=== PATIENT | female | born 1965 | race African-American/Black ===

== ENCOUNTER 2016-12-26 10:08 | Emergency (ER) | payer MEDICARE, MEDICAID ==
[~2016-12-26] VITALS: Ht 162.6 cm; Wt 193.6 kg
[2016-12-26] MEDS ORDERED: KETOROLAC 60MG/2ML VIAL IM ONE (11:00)
[2016-12-26 11:54] VITALS: BP 168/82
== END 2016-12-26 12:18 | disposition home or self-care (01) ==
LOC: ER 10:08
DX: M25.562 Pain in left knee (principal); M17.12 Unilateral primary osteoarthritis, left knee; I50.9 Heart failure, unspecified; E11.9 Type 2 diabetes mellitus without complications; I10 Essential (primary) hypertension; F17.210 Nicotine dependence, cigarettes, uncomplicated; Z88.0 Allergy status to penicillin
CPT/HCPCS: 73564; 81025; 96372; 99284; J1885

== ENCOUNTER 2019-01-14 09:36 | Emergency (ER) | payer OTHER, MEDICAID ==
[~2019-01-14] VITALS: Ht 172.7 cm; Wt 190.0 kg
[~2019-01-14 09:36] MED LIST: AMLO10TA4 MT; COR12 MT; FURO40TA5 PO; HYDR-4001 PO; LOSA25TA26 MT
[2019-01-14] MEDS ORDERED: MORPHINE SULFATE 10 MG/ML CPJ IM ONE (10:00)
[2019-01-14] MEDS ORDERED: ONDANSETRON 4MG ODT PO ONE (10:00)
[2019-01-14 13:20] VITALS: BP 115/89
== END 2019-01-14 13:30 | disposition home or self-care (01) ==
LOC: ER 09:36
DX: G89.29 Other chronic pain (principal); M54.40 Lumbago with sciatica, unspecified side; I11.0 Hypertensive heart disease with heart failure; I50.9 Heart failure, unspecified; I89.0 Lymphedema, not elsewhere classified; R60.0 Localized edema; E11.9 Type 2 diabetes mellitus without complications; Z98.890 Other specified postprocedural states; Z79.899 Other long term (current) drug therapy; Z88.0 Allergy status to penicillin
CPT/HCPCS: 73562; 93970; 99284; J2270; Q0162

== ENCOUNTER 2019-05-30 12:49 | Emergency (ER) | payer OTHER, MEDICAID ==
[~2019-05-30] VITALS: Ht 162.6 cm; Wt 152.0 kg
[2019-05-30 14:21] LABS: BASOPHILS % 0.6 % (0.0-2.0); EOSINOPHILS % 1.6 % (0.0-5.0); HEMATOCRIT. 40.6 % (36.0-48.0); HEMOGLOBIN. 13.2 g/dL (12.0-16.0); LYMPHOCYTES % 29.7 % (20.0-50.0); MEAN CORPUSCULAR HEMOGLOBIN 29.6 pg (28.0-32.0); MEAN CORPUSCULAR VOLUME 91.2 fL (81.0-99.0); MEAN PLATELET VOLUME 8.9 fl (7.4-10.4); MONOCYTES % 7.2 % (2.0-8.0); NEUTROPHILS % 60.9 % (40.0-76.0); PLATELET 249 x1000/uL (130-400); RED BLOOD CELL COUNT 4.45 mill/uL (4.2-5.4); RED CELL DISTRIBUTION WIDTH 13.4 % (11.6-14.6)
[2019-05-30 14:32] LABS: CHLORIDE 107 mEq/L (98-107)
[2019-05-30 14:39] LABS: CLARITY URINE CLEAR (CLEAR); COLOR URINE YELLOW (YELLOW); KETONES URINE NEGATIVE (NEGATIVE); LEUKOCYTE ESTERASE URINE TRACE (NEGATIVE); NITRITE URINE NEGATIVE (NEGATIVE); OCCULT BLOOD URINE NEGATIVE (NEGATIVE); PROTEIN URINE NEGATIVE (NEGATIVE); SPECIFIC GRAVITY URINE 1.016 (1.005-1.030); UROBILINOGEN URINE 0.2 E.U./dL (0.2-1.0)
[2019-05-30] MEDS ORDERED: ACETAMINOPHEN WITH CODEINE 300/30MG TABLET PO ONE (16:00)
[2019-05-30 16:20] VITALS: BP 172/72
== END 2019-05-30 16:22 | disposition home or self-care (01) ==
LOC: ER 12:49
DX: N30.90 Cystitis, unspecified without hematuria (principal); E11.65 Type 2 diabetes mellitus with hyperglycemia; F17.290 Nicotine dependence, other tobacco product, uncomplicated; J44.9 Chronic obstructive pulmonary disease, unspecified; I10 Essential (primary) hypertension; Z98.890 Other specified postprocedural states; Z79.899 Other long term (current) drug therapy; Z88.0 Allergy status to penicillin
CPT/HCPCS: 36415; 80053; 81003; 85025; 99283; 99406

== ENCOUNTER 2019-08-01 11:30 | Inpatient (IN) | payer OTHER, MEDICAID ==
[~2019-08-01] VITALS: Ht 162.6 cm; Wt 194.6 kg
[2019-08-01] MEDS ORDERED: HYDROCODONE/ACETAMINOPHEN 5/325MG TABLET PO ONE (12:45)
[2019-08-01] MEDS ORDERED: KETOROLAC 30MG/ML VIAL IM ONE (12:45)
[2019-08-01] MEDS ORDERED: MORPHINE SULFATE 10 MG/ML CPJ IM ONE (14:00)
[2019-08-01] MEDS ORDERED: ONDANSETRON 4MG ODT PO ONE (14:00)
[2019-08-01 18:14] LABS: BASOPHILS % 0.5 % (0.0-2.0); EOSINOPHILS % 2.2 % (0.0-5.0); HEMATOCRIT. 37.4 % (36.0-48.0); HEMOGLOBIN. 12.4 g/dL (12.0-16.0); LYMPHOCYTES % 29.4 % (20.0-50.0); MEAN CORPUSCULAR HEMOGLOBIN 29.3 pg (28.0-32.0); MEAN CORPUSCULAR VOLUME 88.1 fL (81.0-99.0); MEAN PLATELET VOLUME 8.9 fl (7.4-10.4); MONOCYTES % 9.8 % (2.0-8.0); NEUTROPHILS % 58.1 % (40.0-76.0); PLATELET 220 x1000/uL (130-400); RED BLOOD CELL COUNT 4.24 mill/uL (4.2-5.4)
[2019-08-01 18:17] LABS: BG BASE EXCESS 2.1 mmol/L (-2.0-2.0); BG CARBOXYHEMOGLOBIN 0.3 % (0.5-1.5); BG DEOXYHEMOGLOBIN 7.8 % (0.0-5.0); BG FRACTION INSPIRED OXYGEN 21; BG HCO3 ACT 27.6 mmol/L (22.0-26.0); BG METHEMOGLOBIN 0.3 % (0.0-1.5); BG OXYGEN SATURATION 92.2 % (92.0-98.5); BG OXYHEMOGLOBIN 91.6 % (94.0-97.0); BG PCO2 46.9 mmHg (35.0-45.0); BG PH 7.388 (7.350-7.450); BG PO2 63.8 mmHg (75.0-100.0); BG SAMPLE SITE RIGHT RADIAL; BG TOTAL HEMOGLOBIN 12.8 g/dL (12.0-18.0); BG VENT MODE ROOM AIR; CHLORIDE 105 mEq/L (98-107)
[2019-08-01 18:19] LABS: PROTHROMBIN TIME 11.2 sec (9.6-11.0)
[2019-08-01 18:21] LABS: ETHANOL BLOOD < 10 mg/dL
[2019-08-01 18:41] LABS: CLARITY URINE CLEAR (CLEAR); COLOR URINE YELLOW (YELLOW); KETONES URINE NEGATIVE (NEGATIVE); LEUKOCYTE ESTERASE URINE NEGATIVE (NEGATIVE); NITRITE URINE NEGATIVE (NEGATIVE); OCCULT BLOOD URINE NEGATIVE (NEGATIVE); PH URINE 7.5 (4.5-8.0); PROTEIN URINE NEGATIVE (NEGATIVE); SPECIFIC GRAVITY URINE 1.017 (1.005-1.030); UROBILINOGEN URINE 0.2 E.U./dL (0.2-1.0)
[2019-08-01 18:50] LABS: *AMPHETAMINES SCREEN URINE NEGATIVE (NEGATIVE); *BARBITURATES SCREEN URINE NEGATIVE (NEGATIVE)
[2019-08-01 18:51] LABS: *BENZODIAZEPINES SCREEN URINE NEGATIVE (NEGATIVE); *COCAINE SCREEN URINE NEGATIVE (NEGATIVE); METHADONE URINE SCREEN NEGATIVE (NEGATIVE); OPIATES URINE SCREEN PRESUMTIVE POSITIVE (NEGATIVE); PHENCYCLIDINE URINE SCREEN NEGATIVE (NEGATIVE)
[2019-08-01 18:52] LABS: CANNABINOID URINE SCREEN NEGATIVE (NEGATIVE)
[2019-08-01 21:15] VITALS: BP 171/76
[2019-08-01] MEDS ORDERED: ASCO-339 PO (23:56)
[2019-08-02] MEDS: FUROSEMIDE 40MG TABLET PO SCH ×2 (01:35→13:01)
[2019-08-02] MEDS: LORAZEPAM 0.5MG TABLET PO PRN ×2 (01:35→08:52)
[2019-08-02] MEDS ORDERED: DEXTROSE 50% WATER 50ML SYRINGE IV PRN (02:15)
[2019-08-02 04:00] VITALS: BP 154/77
[2019-08-02] MEDS: BLOOD SUGAR DIAGNOSTIC STRIP TEST SCH ×4 (06:53→21:28)
[2019-08-02 08:00] VITALS: BP 176/82
[2019-08-02] MEDS: INSULIN LISPRO 100 UNITS/ML SUBCUT SCH ×4 (08:10→21:00)
[2019-08-02 12:00] VITALS: BP 170/75
[2019-08-02] MEDS ORDERED: LOSARTAN POTASSIUM 25 MG TABLET PO SCH (13:00)
[2019-08-02] MEDS ORDERED: AMLODIPINE 10MG TABLET PO SCH (13:30)
[2019-08-02] MEDS ORDERED: CARVEDILOL 12.5MG TABLET PO SCH (13:30)
[2019-08-02] MEDS ORDERED: HYDROCODONE/ACETAMINOPHEN 5/325MG TABLET PO PRN (13:45)
[2019-08-02 16:00] VITALS: BP 170/75
[2019-08-02] MEDS: SPIRONOLACTONE 25MG TABLET PO SCH (18:23)
[2019-08-02 20:00] VITALS: BP 151/64
[2019-08-02] MEDS: CARVEDILOL 12.5MG TABLET PO SCH (21:31)
[2019-08-03] VITALS: BP 144/63
[2019-08-03] MEDS: DEXAMETHASONE 4MG TABLET PO SCH ×3 (00:18→13:04)
[2019-08-03] MEDS: HYDROCODONE/ACETAMINOPHEN 5/325MG TABLET PO PRN ×3 (00:35→18:13)
[2019-08-03 04:00] VITALS: BP 169/93
[2019-08-03] MEDS: BLOOD SUGAR DIAGNOSTIC STRIP TEST SCH ×4 (07:40→21:06)
[2019-08-03 07:44] LABS: BASOPHILS % 0.2 % (0.0-2.0); HEMATOCRIT. 40.8 % (36.0-48.0); HEMOGLOBIN. 13.6 g/dL (12.0-16.0); LYMPHOCYTES % 14.6 % (20.0-50.0); MEAN CORPUSCULAR HEMOGLOBIN 29.5 pg (28.0-32.0); MEAN CORPUSCULAR VOLUME 88.6 fL (81.0-99.0); MEAN PLATELET VOLUME 9.3 fl (7.4-10.4); MONOCYTES % 2.5 % (2.0-8.0); NEUTROPHILS % 82.7 % (40.0-76.0); PLATELET 241 x1000/uL (130-400); RED CELL DISTRIBUTION WIDTH 13.8 % (11.6-14.6)
[2019-08-03 08:00] VITALS: BP 160/78
[2019-08-03 08:02] LABS: CHLORIDE 103 mEq/L (98-107)
[2019-08-03] MEDS: INSULIN LISPRO 100 UNITS/ML SUBCUT SCH ×4 (08:44→21:13)
[2019-08-03] MEDS: CARVEDILOL 12.5MG TABLET PO SCH ×2 (08:49→21:14)
[2019-08-03] MEDS: SPIRONOLACTONE 25MG TABLET PO SCH (08:50)
[2019-08-03] MEDS ORDERED: LOSARTAN POTASSIUM 25 MG TABLET PO SCH (09:00)
[2019-08-03] MEDS ORDERED: AMLODIPINE 10MG TABLET PO SCH (09:00)
[2019-08-03] MEDS: FUROSEMIDE 40MG/4ML VIAL IVP SCH (09:57)
[2019-08-03 12:00] VITALS: BP_SYST 142; BP_SYST 160; BP_DIAS 69; BP_DIAS 78
[2019-08-03] MEDS: HYDRALAZINE HCL 25MG TABLET PO SCH ×2 (14:58→21:15)
[2019-08-03 16:00] VITALS: BP 148/66
[2019-08-03] MEDS: DEXAMETHASONE 4MG/ML 1ML VIAL IV SCH (18:16)
[2019-08-03 20:00] VITALS: BP 127/79
[2019-08-03] MEDS: LOSARTAN POTASSIUM 50 MG TABLET PO SCH (21:14)
[2019-08-04] VITALS: BP 152/67
[2019-08-04] MEDS: DEXAMETHASONE 4MG/ML 1ML VIAL IV SCH ×4 (00:41→18:15)
[2019-08-04] MEDS: MORPHINE SULFATE 2 MG/ML CPJ (NOT FOR IM USE) IV PRN ×4 (00:45→21:02)
[2019-08-04 04:00] VITALS: BP 150/74
[2019-08-04] MEDS: HYDRALAZINE HCL 25MG TABLET PO SCH ×3 (06:07→21:04)
[2019-08-04 06:58] LABS: BASOPHILS % 0.1 % (0.0-2.0); HEMOGLOBIN. 14.1 g/dL (12.0-16.0); MEAN CORPUSCULAR HEMOGLOBIN 29.1 pg (28.0-32.0); MEAN CORPUSCULAR VOLUME 88.9 fL (81.0-99.0); MEAN PLATELET VOLUME 9.6 fl (7.4-10.4); NEUTROPHILS % 87.9 % (40.0-76.0); PLATELET 248 x1000/uL (130-400); RED BLOOD CELL COUNT 4.84 mill/uL (4.2-5.4); RED CELL DISTRIBUTION WIDTH 13.6 % (11.6-14.6)
[2019-08-04 07:16] LABS: CHLORIDE 104 mEq/L (98-107)
[2019-08-04] MEDS: BLOOD SUGAR DIAGNOSTIC STRIP TEST SCH ×4 (07:50→21:00)
[2019-08-04 08:00] VITALS: BP 165/81
[2019-08-04] MEDS: LOSARTAN POTASSIUM 50 MG TABLET PO SCH ×2 (08:50→21:04)
[2019-08-04] MEDS: SPIRONOLACTONE 50MG TABLET PO SCH (08:50)
[2019-08-04] MEDS: FUROSEMIDE 40MG/4ML VIAL IVP SCH (08:50)
[2019-08-04] MEDS: INSULIN LISPRO 100 UNITS/ML SUBCUT SCH ×4 (08:51→22:34)
[2019-08-04] MEDS: CARVEDILOL 12.5MG TABLET PO SCH ×2 (09:33→21:05)
[2019-08-04 12:00] VITALS: BP 145/68
[2019-08-04 16:00] VITALS: BP 152/60
[2019-08-04 20:00] VITALS: BP 153/77
[2019-08-05] VITALS (7 sets, daily range): BP systolic 143–164; BP diastolic 60–77
[2019-08-05] MEDS: DEXAMETHASONE 4MG/ML 1ML VIAL IV SCH ×5 (00:46→21:06)
[2019-08-05] MEDS: HYDRALAZINE HCL 25MG TABLET PO SCH ×2 (05:50→13:07)
[2019-08-05 06:11] LABS: CHLORIDE 103 mEq/L (98-107)
[2019-08-05] MEDS: INSULIN LISPRO 100 UNITS/ML SUBCUT SCH ×4 (06:24→20:50)
[2019-08-05 06:27] LABS: HEMATOCRIT. 43.5 % (36.0-48.0); HEMOGLOBIN. 14.3 g/dL (12.0-16.0); LYMPHOCYTES % 9.2 % (20.0-50.0); MEAN CORPUSCULAR HEMOGLOBIN 29.4 pg (28.0-32.0); MEAN CORPUSCULAR VOLUME 89.6 fL (81.0-99.0); MEAN PLATELET VOLUME 9.8 fl (7.4-10.4); MONOCYTES % 3.2 % (2.0-8.0); NEUTROPHILS % 87.6 % (40.0-76.0); PLATELET 282 x1000/uL (130-400); RED BLOOD CELL COUNT 4.85 mill/uL (4.2-5.4); RED CELL DISTRIBUTION WIDTH 14.1 % (11.6-14.6)
[2019-08-05] MEDS: BLOOD SUGAR DIAGNOSTIC STRIP TEST SCH ×4 (07:51→20:54)
[2019-08-05] MEDS: FUROSEMIDE 40MG/4ML VIAL IVP SCH (08:47)
[2019-08-05] MEDS: SPIRONOLACTONE 50MG TABLET PO SCH (08:48)
[2019-08-05] MEDS: LOSARTAN POTASSIUM 50 MG TABLET PO SCH ×2 (08:48→20:53)
[2019-08-05] MEDS: CARVEDILOL 12.5MG TABLET PO SCH ×2 (08:48→20:51)
[2019-08-05] MEDS: MORPHINE SULFATE 2 MG/ML CPJ (NOT FOR IM USE) IV PRN ×2 (09:00→17:49)
[2019-08-05] MEDS ORDERED: LACTULOSE 20G/30ML UDC PO NR (19:36)
[2019-08-05] MEDS: AMLODIPINE 5MG TABLET PO SCH (20:51)
[2019-08-05] MEDS: HYDRALAZINE HCL 100MG TABLET PO SCH (20:52)
[2019-08-05] MEDS: INSULIN GLARGINE UD 100 UNITS/ML SYR SUBCUT SCH (22:58)
[2019-08-06] VITALS: BP 149/65
[2019-08-06] MEDS: DEXAMETHASONE 4MG/ML 1ML VIAL IV SCH ×3 (06:00→17:31)
[2019-08-06 06:40] VITALS: BP 138/69
[2019-08-06] MEDS: HYDRALAZINE HCL 100MG TABLET PO SCH ×3 (06:44→20:57)
[2019-08-06] MEDS: MORPHINE SULFATE 2 MG/ML CPJ (NOT FOR IM USE) IV PRN ×2 (06:52→17:24)
[2019-08-06] MEDS: BLOOD SUGAR DIAGNOSTIC STRIP TEST SCH ×4 (07:32→21:01)
[2019-08-06 08:00] VITALS: BP 118/49
[2019-08-06] MEDS: SPIRONOLACTONE 50MG TABLET PO SCH (08:14)
[2019-08-06] MEDS: CARVEDILOL 12.5MG TABLET PO SCH ×2 (08:15→20:58)
[2019-08-06] MEDS: FUROSEMIDE 40MG/4ML VIAL IVP SCH (08:15)
[2019-08-06] MEDS: LOSARTAN POTASSIUM 50 MG TABLET PO SCH ×2 (08:15→21:00)
[2019-08-06] MEDS: AMLODIPINE 5MG TABLET PO SCH ×2 (08:15→20:58)
[2019-08-06] MEDS: INSULIN LISPRO 100 UNITS/ML SUBCUT SCH ×4 (08:20→20:59)
[2019-08-06] MEDS: INSULIN GLARGINE UD 100 UNITS/ML SYR SUBCUT SCH ×2 (10:25→21:00)
[2019-08-06 12:00] VITALS: BP 110/62
[2019-08-06] MEDS ORDERED: LOSA50TA3 PO (12:13)
[2019-08-06] MEDS ORDERED: LANTUSUD SUBCUT (12:13)
[2019-08-06] MEDS ORDERED: COR12 PO (12:13)
[2019-08-06] MEDS ORDERED: INSLIS SUBCUT (12:13)
[2019-08-06] MEDS ORDERED: ALD50 PO (12:13)
[2019-08-06] MEDS ORDERED: HYDR100T26 PO (12:13)
[2019-08-06] MEDS ORDERED: P20 MT (12:17)
[2019-08-06 16:00] VITALS: BP 137/69
[2019-08-06 20:00] VITALS: BP 124/58
[2019-08-07] VITALS: BP 140/62
[2019-08-07] MEDS: DEXAMETHASONE 4MG/ML 1ML VIAL IV SCH ×5 (00:44→23:59)
[2019-08-07 04:00] VITALS: BP 150/62
[2019-08-07] MEDS: HYDRALAZINE HCL 100MG TABLET PO SCH ×3 (06:39→22:23)
[2019-08-07] MEDS: BLOOD SUGAR DIAGNOSTIC STRIP TEST SCH ×4 (07:34→20:12)
[2019-08-07 08:00] VITALS: BP 137/62
[2019-08-07] MEDS: FUROSEMIDE 40MG/4ML VIAL IVP SCH (08:13)
[2019-08-07] MEDS: AMLODIPINE 5MG TABLET PO SCH ×2 (08:14→21:43)
[2019-08-07] MEDS: SPIRONOLACTONE 50MG TABLET PO SCH (08:14)
[2019-08-07] MEDS: CARVEDILOL 12.5MG TABLET PO SCH ×2 (08:14→21:42)
[2019-08-07] MEDS: LOSARTAN POTASSIUM 50 MG TABLET PO SCH ×2 (08:14→21:43)
[2019-08-07] MEDS: MORPHINE SULFATE 2 MG/ML CPJ (NOT FOR IM USE) IV PRN (08:15)
[2019-08-07] MEDS: INSULIN LISPRO 100 UNITS/ML SUBCUT SCH ×4 (08:21→20:25)
[2019-08-07] MEDS: INSULIN GLARGINE UD 100 UNITS/ML SYR SUBCUT SCH ×2 (10:52→22:25)
[2019-08-07 12:00] VITALS: BP 119/61
[2019-08-07 16:00] VITALS: BP 135/69
[2019-08-07] MEDS ORDERED: DEXA4TAB MT (19:06)
[2019-08-07 20:00] VITALS: BP 163/74
[2019-08-08] VITALS (8 sets, daily range): BP systolic 93–206; BP diastolic 54–81
[2019-08-08] MEDS: DEXAMETHASONE 4MG/ML 1ML VIAL IV SCH ×3 (06:00→18:00)
[2019-08-08] MEDS: HYDRALAZINE HCL 100MG TABLET PO SCH ×2 (06:05→14:00)
[2019-08-08] MEDS: BLOOD SUGAR DIAGNOSTIC STRIP TEST SCH ×4 (06:07→20:39)
[2019-08-08] MEDS: INSULIN LISPRO 100 UNITS/ML SUBCUT SCH ×4 (08:19→20:45)
[2019-08-08] MEDS: LOSARTAN POTASSIUM 50 MG TABLET PO SCH ×2 (08:52→21:00)
[2019-08-08] MEDS: CARVEDILOL 12.5MG TABLET PO SCH ×2 (08:52→21:00)
[2019-08-08] MEDS: AMLODIPINE 5MG TABLET PO SCH ×2 (08:53→21:00)
[2019-08-08] MEDS: FUROSEMIDE 40MG/4ML VIAL IVP SCH ×2 (09:00→12:01)
[2019-08-08] MEDS: INSULIN GLARGINE UD 100 UNITS/ML SYR SUBCUT SCH (12:00)
[2019-08-08] MEDS: SPIRONOLACTONE 50MG TABLET PO SCH (12:01)
[2019-08-08] MEDS ORDERED: HYDROCODONE/ACETAMINOPHEN 5/325MG TABLET PO PRN (15:45)
[2019-08-08] MEDS: MORPHINE SULFATE 2 MG/ML CPJ (NOT FOR IM USE) IV PRN (20:09)
[2019-09-03] MEDS ORDERED: OMEP40CA12 MT (14:57)
== END 2019-08-08 21:05 | disposition home health service (06) | DRG 91 ==
LOC: ER 11:30 → 7WST 20:24 → EDBEDREQTM 20:25 → EDBEDREQSVC 20:25 → ENRESERV 20:49
PROVIDERS: ADMIT Internal Medicine; ATTEND Internal Medicine
DX: G95.20 Unspecified cord compression (principal); I50.23 Acute on chronic systolic (congestive) heart failure; J96.01 Acute respiratory failure with hypoxia; G82.50 Quadriplegia, unspecified; N18.6 End stage renal disease; I13.2 Hypertensive heart and chronic kidney disease with heart failure and with stage 5 chronic kidney disease, or end stage renal disease; Z68.45 Body mass index [BMI] 70 or greater, adult; I42.9 Cardiomyopathy, unspecified; M54.5 Low back pain; I11.0 Hypertensive heart disease with heart failure; R32 Unspecified urinary incontinence; G89.29 Other chronic pain; E11.22 Type 2 diabetes mellitus with diabetic chronic kidney disease; R15.9 Full incontinence of feces; R53.1 Weakness; I08.1 Rheumatic disorders of both mitral and tricuspid valves; J44.9 Chronic obstructive pulmonary disease, unspecified; E11.42 Type 2 diabetes mellitus with diabetic polyneuropathy; G47.33 Obstructive sleep apnea (adult) (pediatric); E66.01 Morbid (severe) obesity due to excess calories; Z87.891 Personal history of nicotine dependence; Z91.19 Patient's noncompliance with other medical treatment and regimen; Z98.891 History of uterine scar from previous surgery; Z99.2 Dependence on renal dialysis; Z88.0 Allergy status to penicillin; Z79.899 Other long term (current) drug therapy
CPT/HCPCS: 36415; 36600; 71045; 80048; 80053; 80305; 80320; 81003; 82375; 82805; 82962; 83036; 83880; 85025; 93005; 93306; 96372; 99285; J1100; J1815; J1885; J1940; J2270; J8540; Q0162; G0480

== ENCOUNTER 2019-09-30 12:19 | Inpatient (IN) | payer OTHER, MEDICAID ==
[~2019-09-30] VITALS: Ht 162.6 cm; Wt 186.2 kg
[~2019-09-30 12:19] MED LIST changes: +ALD50 PO; +ASCO-339 PO; -COR12 MT; +COR12 PO; +HYDR100T26 PO; +INSLIS SUBCUT; +LANTUSUD SUBCUT; -LOSA25TA26 MT; +LOSA50TA3 PO; +OMEP40CA12 MT
[2019-09-30 14:29] LABS: BASOPHILS % 0.4 % (0.0-2.0); EOSINOPHILS % 1.1 % (0.0-5.0); HEMATOCRIT. 29.8 % (36.0-48.0); HEMOGLOBIN. 9.6 g/dL (12.0-16.0); LYMPHOCYTES % 11.3 % (20.0-50.0); MEAN CORPUSCULAR HEMOGLOBIN 27.5 pg (28.0-32.0); MEAN CORPUSCULAR VOLUME 85.6 fL (81.0-99.0); MEAN PLATELET VOLUME 8.7 fl (7.4-10.4); MONOCYTES % 9.6 % (2.0-8.0); NEUTROPHILS % 77.6 % (40.0-76.0); PLATELET 369 x1000/uL (130-400); RED BLOOD CELL COUNT 3.48 mill/uL (4.2-5.4); RED CELL DISTRIBUTION WIDTH 15.8 % (11.6-14.6)
[2019-09-30 14:45] LABS: INR 1.1; PARTIAL THROMBOPLASTIN TIME 28.8 sec (23.4-31.0); PROTHROMBIN TIME 11.7 sec (9.6-11.0)
[2019-09-30 14:48] LABS: CHLORIDE 101 mEq/L (98-107)
[2019-09-30] MEDS ORDERED: ONDANSETRON HCL 4MG/2ML INJ IV PRN (16:00)
[2019-09-30 16:18] LABS: PHOSPHORUS 3.1 mg/dL (2.5-4.9)
[2019-09-30 17:54] LABS: BG BASE EXCESS -0.7 mmol/L (-2.0-2.0); BG CARBOXYHEMOGLOBIN 0.3 % (0.5-1.5); BG DEOXYHEMOGLOBIN 4.2 % (0.0-5.0); BG OXYGEN SATURATION 95.8 % (92.0-98.5); BG OXYHEMOGLOBIN 95.5 % (94.0-97.0); BG PCO2 29.3 mmHg (35.0-45.0); BG PH 7.493 (7.350-7.450); BG PO2 77.3 mmHg (75.0-100.0); BG SAMPLE SITE RIGHT RADIAL; BG TOTAL HEMOGLOBIN 10.1 g/dL (12.0-18.0); BG VENT MODE ROOM AIR
[2019-09-30] MEDS: DEXT 5%/LACTATED RINGERS 1,000 ML IV SCH (19:15)
[2019-09-30] MEDS ORDERED: IPRATROPIUM/ALBUTEROL 0.5-3(2.5)MG/3ML NEB HHN PRN (19:15)
[2019-09-30] MEDS: DEXAMETHASONE 4MG/ML 1ML VIAL IV SCH (20:00)
[2019-10-01] VITALS (46 sets, daily range): BP systolic 91–187; BP diastolic 39–133
[2019-10-01] MEDS: DEXAMETHASONE 4MG/ML 1ML VIAL IV SCH ×4 (02:06→20:16)
[2019-10-01] MEDS ORDERED: DEXTROSE 50% WATER 50ML SYRINGE IV PRN (04:30)
[2019-10-01] MEDS: CLONIDINE 0.1MG TABLET PO PRN (06:00)
[2019-10-01 06:12] LABS: CHLORIDE 103 mEq/L (98-107)
[2019-10-01 06:19] LABS: LDL CHOLESTEROL 72 mg/dL (5-100)
[2019-10-01 06:21] LABS: HDL CHOLESTEROL 34 mg/dL (40-59)
[2019-10-01] MEDS ORDERED: LIDOCAINE HCL/EPINEPHRINE 1%-EPI 1:100,000 20 ML VIAL ONE (06:35)
[2019-10-01] MEDS ORDERED: THROMBIN (BOVINE) 5000 UNITS/VIAL TOP ONE (06:35)
[2019-10-01] MEDS ORDERED: BACITRACIN 50,000 UNITS/VIAL ONE (06:36)
[2019-10-01] MEDS: BLOOD SUGAR DIAGNOSTIC STRIP TEST SCH ×2 (06:54→16:30)
[2019-10-01] MEDS ORDERED: FENTANYL CITRATE/PF 50MCG/ML 2ML VIAL ONE (07:03)
[2019-10-01] MEDS ORDERED: GLYCOPYRROLATE 0.2 MG/ML 2ML VIAL ONE (07:04)
[2019-10-01] MEDS ORDERED: MIDAZOLAM HCL 2 MG/2 ML VIAL ONE ×2 (07:04→07:07)
[2019-10-01] MEDS ORDERED: NEOSTIGMINE METHYLSULFATE 1MG/ML 10 ML VIAL ONE (07:04)
[2019-10-01] MEDS ORDERED: ROCURONIUM BROMIDE 10MG/ML VIAL 5ML IV ONE ×2 (07:04→07:53)
[2019-10-01] MEDS ORDERED: PROPOFOL 200MG/20ML VIAL IV ONE (07:04)
[2019-10-01] MEDS ORDERED: DEXAMETHASONE 4MG/ML 1ML VIAL ONE (07:05)
[2019-10-01] MEDS ORDERED: ONDANSETRON HCL 4MG/2ML INJ ONE (07:06)
[2019-10-01 07:19] LABS: HEMATOCRIT. 30.3 % (36.0-48.0); HEMOGLOBIN. 9.8 g/dL (12.0-16.0); MEAN CORPUSCULAR HEMOGLOBIN 27.7 pg (28.0-32.0); MEAN CORPUSCULAR VOLUME 85.7 fL (81.0-99.0); MEAN PLATELET VOLUME 7.7 fl (7.4-10.4); PLATELET 410 x1000/uL (130-400); RED BLOOD CELL COUNT 3.53 mill/uL (4.2-5.4); RED CELL DISTRIBUTION WIDTH 16.1 % (11.6-14.6)
[2019-10-01] MEDS ORDERED: INSULIN REGULAR (HUMULIN R) 300UNITS/3ML ONE (07:27)
[2019-10-01] MEDS ORDERED: CLINDAMYCIN 600 MG in DEXTROSE 5% WATER 50 ML IV SCH (07:30)
[2019-10-01] MEDS: SODIUM CHLORIDE 0.9% 1,000 ML IV SCH ×2 (07:30→12:47)
[2019-10-01] MEDS: INSULIN LISPRO 100 UNITS/ML SUBCUT SCH ×3 (07:50→17:05)
[2019-10-01] MEDS ORDERED: CLINDAMYCIN 900 MG PREMIX 50 ML IV ONE (07:53)
[2019-10-01 08:07] LABS: CLARITY URINE CLEAR (CLEAR); COLOR URINE YELLOW (YELLOW); KETONES URINE 2+ (NEGATIVE); LEUKOCYTE ESTERASE URINE NEGATIVE (NEGATIVE); NITRITE URINE NEGATIVE (NEGATIVE); OCCULT BLOOD URINE NEGATIVE (NEGATIVE); PH URINE 6.5 (4.5-8.0); PROTEIN URINE NEGATIVE (NEGATIVE); SPECIFIC GRAVITY URINE 1.013 (1.005-1.030)
[2019-10-01] MEDS ORDERED: HYDROMORPHONE HCL/PF 2MG/ML (OR) ONE (08:20)
[2019-10-01] MEDS: DEXT 5%/LACTATED RINGERS 1,000 ML IV SCH (08:35)
[2019-10-01] MEDS ORDERED: HYDROMORPHONE HCL/PF 2MG/ML CPJ IV PRN (08:45)
[2019-10-01] MEDS ORDERED: LABETALOL 5MG/ML SYR 20 MG/4 ML SYRINGE IV PRN (08:45)
[2019-10-01] MEDS ORDERED: ONDANSETRON HCL 4MG/2ML INJ IV PRN (08:45)
[2019-10-01] MEDS ORDERED: MEPERIDINE HCL/PF 25MG/ML CPJ IV PRN (08:45)
[2019-10-01 09:40] LABS: *AMPHETAMINES SCREEN URINE NEGATIVE (NEGATIVE); *BARBITURATES SCREEN URINE NEGATIVE (NEGATIVE); *BENZODIAZEPINES SCREEN URINE NEGATIVE (NEGATIVE); *COCAINE SCREEN URINE NEGATIVE (NEGATIVE); METHADONE URINE SCREEN NEGATIVE (NEGATIVE); OPIATES URINE SCREEN PRESUMTIVE POSITIVE (NEGATIVE); PHENCYCLIDINE URINE SCREEN NEGATIVE (NEGATIVE)
[2019-10-01 09:42] LABS: CANNABINOID URINE SCREEN NEGATIVE (NEGATIVE)
[2019-10-01 11:02] LABS: PLATELET ESTIMATE SLIGHTLY INCREASED
[2019-10-01] MEDS ORDERED: BACITRACIN 15GM TUBE TOP ONE (11:08)
[2019-10-01] MEDS ORDERED: DIPHENHYDRAMINE INJ IV PRN (12:00)
[2019-10-01] MEDS ORDERED: HYDROMORPHONE PCA 10MG/50ML IV PRN (12:00)
[2019-10-01] MEDS ORDERED: NALOXONE INJ IV PRN (12:00)
[2019-10-01] MEDS: NICARDIPINE 100 MG in SODIUM CHLORIDE 0.9% 60 ML IV PRN (12:46)
[2019-10-01 14:23] LABS: BG BASE EXCESS -2.9 mmol/L (-2.0-2.0); BG CARBOXYHEMOGLOBIN 0.3 % (0.5-1.5); BG DEOXYHEMOGLOBIN 0.2 % (0.0-5.0); BG FRACTION INSPIRED OXYGEN 100; BG HCO3 ACT 20.6 mmol/L (22.0-26.0); BG METHEMOGLOBIN 0.3 % (0.0-1.5); BG OXYGEN SATURATION 99.8 % (92.0-98.5); BG OXYHEMOGLOBIN 99.2 % (94.0-97.0); BG PCO2 31.3 mmHg (35.0-45.0); BG PH 7.436 (7.350-7.450); BG PO2 395.3 mmHg (75.0-100.0); BG SAMPLE SITE A-LINE; BG TIDAL VOLUME(mL) 650 mL; BG TOTAL HEMOGLOBIN 10.2 g/dL (12.0-18.0); BG VENT MODE VENT - A/C; BG VENT RATE 12 set
[2019-10-01 15:40] LABS: BG BASE EXCESS -3.9 mmol/L (-2.0-2.0); BG CARBOXYHEMOGLOBIN 0.3 % (0.5-1.5); BG DEOXYHEMOGLOBIN 2.8 % (0.0-5.0); BG FRACTION INSPIRED OXYGEN 40; BG HCO3 ACT 21.2 mmol/L (22.0-26.0); BG METHEMOGLOBIN 0.3 % (0.0-1.5); BG OXYGEN SATURATION 97.2 % (92.0-98.5); BG OXYHEMOGLOBIN 96.6 % (94.0-97.0); BG PCO2 39.1 mmHg (35.0-45.0); BG PH 7.353 (7.350-7.450); BG PO2 103.7 mmHg (75.0-100.0); BG PRESSURE SUPPORT 8; BG SAMPLE SITE A-LINE; BG TOTAL HEMOGLOBIN 9.7 g/dL (12.0-18.0); BG VENT MODE VENT - CPAP
[2019-10-01] MEDS: CLINDAMYCIN 600MG PREMIX 50 ML IV SCH (15:55)
[2019-10-01] MEDS ORDERED: LORAZEPAM 2MG/ML CPJ IV PRN (16:45)
[2019-10-02] VITALS (110 sets, daily range): BP systolic 34–247; BP diastolic 29–240
[2019-10-02] MEDS: BLOOD SUGAR DIAGNOSTIC STRIP TEST SCH ×5 (00:19→23:04)
[2019-10-02] MEDS: PHENOL/SODIUM PHENOLATE 1.4% SRPAY 177ML MM PRN ×3 (00:23→15:24)
[2019-10-02] MEDS: CLINDAMYCIN 600MG PREMIX 50 ML IV SCH ×2 (00:23→08:29)
[2019-10-02] MEDS: INSULIN LISPRO 100 UNITS/ML SUBCUT SCH ×5 (00:24→23:14)
[2019-10-02] MEDS: SODIUM CHLORIDE 0.9% 1,000 ML IV SCH ×3 (01:27→23:30)
[2019-10-02] MEDS: DEXAMETHASONE 4MG/ML 1ML VIAL IV SCH ×4 (02:00→20:16)
[2019-10-02 05:48] LABS: BASOPHILS % 0.4 % (0.0-2.0); LYMPHOCYTES % 7.4 % (20.0-50.0); MEAN CORPUSCULAR HEMOGLOBIN 27.9 pg (28.0-32.0); MONOCYTES % 3.8 % (2.0-8.0); NEUTROPHILS % 88.4 % (40.0-76.0); PLATELET 427 x1000/uL (130-400); RED BLOOD CELL COUNT 2.31 mill/uL (4.2-5.4); RED CELL DISTRIBUTION WIDTH 15.8 % (11.6-14.6)
[2019-10-02 05:55] LABS: CHLORIDE 105 mEq/L (98-107)
[2019-10-02 06:15] LABS: HEMOGLOBIN. 6.4 g/dL (12.0-16.0)
[2019-10-02 06:16] LABS: HEMATOCRIT. 19.8 % (36.0-48.0)
[2019-10-02 09:21] LABS: PROTHROMBIN TIME 11.3 sec (9.6-11.0)
[2019-10-02] MEDS ORDERED: IOHEXOL-300 100 ML BOTTLE ONE (12:37)
[2019-10-02] MEDS ORDERED: LIDOCAINE HCL 1% 20ML VIAL (Pyxis) INJ ONE (12:37)
[2019-10-02] MEDS ORDERED: SODIUM BICARBONATE 4% (2.4MEQ) 5ML VIAL IV ONE (12:37)
[2019-10-02] MEDS ORDERED: IOHEXOL-300 50 ML BOTTLE IV ONE (12:41)
[2019-10-02 15:45] LABS: HEMOGLOBIN 9.8 g/dL (12.0-16.0); MEAN CORPUSCULAR VOLUME 85.8 fL (81.0-99.0); PLATELET 400 x1000/uL (130-400); RED BLOOD CELL COUNT 3.49 mill/uL (4.2-5.4)
[2019-10-02] MEDS: NICARDIPINE 100 MG in SODIUM CHLORIDE 0.9% 60 ML IV PRN ×2 (16:11→23:13)
[2019-10-02] MEDS ORDERED: KCL 20MEQ/100ML PREMIX 100 ML IV SCH (17:00)
[2019-10-02] MEDS: MORPHINE SULFATE 4 MG/ML CPJ (NOT FOR IM USE) IV PRN (20:16)
[2019-10-02] MEDS: ONDANSETRON INJ IV PRN (20:17)
[2019-10-03] VITALS (89 sets, daily range): BP systolic 109–159; BP diastolic 57–80
[2019-10-03] MEDS: MORPHINE SULFATE 4 MG/ML CPJ (NOT FOR IM USE) IV PRN ×4 (01:51→21:13)
[2019-10-03] MEDS: ONDANSETRON INJ IV PRN (01:51)
[2019-10-03] MEDS: DEXAMETHASONE 4MG/ML 1ML VIAL IV SCH ×4 (01:51→21:05)
[2019-10-03 05:35] LABS: CHLORIDE 104 mEq/L (98-107)
[2019-10-03 05:38] LABS: MEAN CORPUSCULAR HEMOGLOBIN 27.8 pg (28.0-32.0); MEAN PLATELET VOLUME 8.5 fl (7.4-10.4); PLATELET 313 x1000/uL (130-400); RED BLOOD CELL COUNT 3.25 mill/uL (4.2-5.4); RED CELL DISTRIBUTION WIDTH 15.8 % (11.6-14.6)
[2019-10-03] MEDS: BLOOD SUGAR DIAGNOSTIC STRIP TEST SCH ×4 (06:25→23:13)
[2019-10-03] MEDS: OMEPRAZOLE 20MG CAPSULE EXTENDED RELEASE PO SCH (06:38)
[2019-10-03] MEDS: INSULIN LISPRO 100 UNITS/ML SUBCUT SCH ×4 (06:39→23:23)
[2019-10-03] MEDS: NICARDIPINE 100 MG in SODIUM CHLORIDE 0.9% 60 ML IV PRN ×3 (08:10→23:21)
[2019-10-03] MEDS: SODIUM HYPOCHLORITE 0.125% 473ML SOLUTION TOP SCH (08:10)
[2019-10-03] MEDS ORDERED: DEXAMETHASONE 4MG/ML 1ML VIAL IV SCH (10:00)
[2019-10-03] MEDS: ONDANSETRON HCL 4MG/2ML INJ IV PRN ×2 (11:27→21:13)
[2019-10-03] MEDS: AMLODIPINE 10MG TABLET PO SCH (12:00)
[2019-10-03] MEDS: INSULIN GLARGINE UD 100 UNITS/ML SYR SUBCUT SCH ×2 (12:34→23:23)
[2019-10-03] MEDS ORDERED: LIDOCAINE HCL/EPINEPHRINE 1%-EPI 1:100,000 20 ML VIAL INFIL SCH (13:00)
[2019-10-03 13:27] LABS: PLATELET ESTIMATE NORMAL
[2019-10-03] MEDS: PHENOL/SODIUM PHENOLATE 1.4% SRPAY 177ML MM PRN (17:12)
[2019-10-03] MEDS: CARVEDILOL 12.5MG TABLET PO SCH (21:05)
[2019-10-03] MEDS: LOSARTAN POTASSIUM 50 MG TABLET PO SCH (21:05)
[2019-10-04] VITALS (91 sets, daily range): BP systolic 85–139; BP diastolic 32–88
[2019-10-04 01:26] LABS: BG BASE EXCESS -0.4 mmol/L (-2.0-2.0); BG CARBOXYHEMOGLOBIN 0.3 % (0.5-1.5); BG DEOXYHEMOGLOBIN 17.3 % (0.0-5.0); BG FRACTION INSPIRED OXYGEN 40; BG HCO3 ACT 23.8 mmol/L (22.0-26.0); BG METHEMOGLOBIN 0.1 % (0.0-1.5); BG OXYGEN SATURATION 82.6 % (92.0-98.5); BG OXYHEMOGLOBIN 82.3 % (94.0-97.0); BG PCO2 37.2 mmHg (35.0-45.0); BG PH 7.424 (7.350-7.450); BG PO2 45.6 mmHg (75.0-100.0); BG SAMPLE SITE LEFT RADIAL; BG TOTAL HEMOGLOBIN 9.4 g/dL (12.0-18.0); BG VENT MODE NASAL CANNULA
[2019-10-04] MEDS: ONDANSETRON HCL 4MG/2ML INJ IV PRN (03:38)
[2019-10-04] MEDS: DEXAMETHASONE 4MG/ML 1ML VIAL IV SCH ×4 (03:38→22:15)
[2019-10-04] MEDS: MORPHINE SULFATE 4 MG/ML CPJ (NOT FOR IM USE) IV PRN (03:39)
[2019-10-04 06:03] LABS: CHLORIDE 105 mEq/L (98-107)
[2019-10-04] MEDS: BLOOD SUGAR DIAGNOSTIC STRIP TEST SCH ×4 (06:18→23:54)
[2019-10-04] MEDS: OMEPRAZOLE 20MG CAPSULE EXTENDED RELEASE PO SCH (06:26)
[2019-10-04] MEDS: INSULIN LISPRO 100 UNITS/ML SUBCUT SCH ×3 (06:27→17:37)
[2019-10-04] MEDS ORDERED: HYDROCODONE/ACETAMINOPHEN 5/325MG TABLET PO PRN (08:00)
[2019-10-04 08:46] LABS: HEMATOCRIT. 28.6 % (36.0-48.0); HEMOGLOBIN. 9.1 g/dL (12.0-16.0); MEAN CORPUSCULAR HEMOGLOBIN 27.8 pg (28.0-32.0); MEAN CORPUSCULAR VOLUME 87.3 fL (81.0-99.0); RED BLOOD CELL COUNT 3.28 mill/uL (4.2-5.4); RED CELL DISTRIBUTION WIDTH 15.5 % (11.6-14.6)
[2019-10-04] MEDS: AMLODIPINE 10MG TABLET PO SCH (09:00)
[2019-10-04] MEDS: LOSARTAN POTASSIUM 50 MG TABLET PO SCH ×2 (09:00→21:00)
[2019-10-04] MEDS: CARVEDILOL 12.5MG TABLET PO SCH ×2 (09:00→21:00)
[2019-10-04] MEDS: SODIUM HYPOCHLORITE 0.125% 473ML SOLUTION TOP SCH (09:22)
[2019-10-04] MEDS: INSULIN GLARGINE UD 100 UNITS/ML SYR SUBCUT SCH ×2 (10:23→22:16)
[2019-10-04 11:34] LABS: PLATELET ESTIMATE NORMAL
[2019-10-04 11:36] LABS: PLATELET 231 x1000/uL (130-400)
[2019-10-04 12:12] LABS: BG BASE EXCESS 3.4 mmol/L (-2.0-2.0); BG CARBOXYHEMOGLOBIN 0.3 % (0.5-1.5); BG DEOXYHEMOGLOBIN 4.4 % (0.0-5.0); BG METHEMOGLOBIN 0.3 % (0.0-1.5); BG OXYGEN SATURATION 95.6 % (92.0-98.5); BG PCO2 85.7 mmHg (35.0-45.0); BG PH 7.203 (7.350-7.450); BG PO2 92.4 mmHg (75.0-100.0); BG SAMPLE SITE RIGHT RADIAL; BG TOTAL HEMOGLOBIN 9.8 g/dL (12.0-18.0); BG VENT MODE MASK - NRB
[2019-10-05] VITALS (103 sets, daily range): BP systolic 79–162; BP diastolic 34–89
[2019-10-05 00:09] LABS: BG CARBOXYHEMOGLOBIN 0.3 % (0.5-1.5); BG DEOXYHEMOGLOBIN 10.5 % (0.0-5.0); BG FRACTION INSPIRED OXYGEN 44; BG METHEMOGLOBIN 0.3 % (0.0-1.5); BG OXYGEN SATURATION 89.4 % (92.0-98.5); BG OXYHEMOGLOBIN 88.9 % (94.0-97.0); BG PCO2 99.8 mmHg (35.0-45.0); BG PH 7.124 (7.350-7.450); BG PO2 65.7 mmHg (75.0-100.0); BG SAMPLE SITE LEFT RADIAL; BG TOTAL HEMOGLOBIN 9.8 g/dL (12.0-18.0); BG VENT MODE NASAL CANNULA
[2019-10-05] MEDS: INSULIN LISPRO 100 UNITS/ML SUBCUT SCH ×5 (00:30→23:38)
[2019-10-05] MEDS ORDERED: NOREPINEPHRINE 32 MG in DEXT 5% WATER 468 ML IV PRN (01:15)
[2019-10-05] MEDS: DEXAMETHASONE 4MG/ML 1ML VIAL IV SCH ×4 (03:21→21:11)
[2019-10-05] MEDS: MORPHINE SULFATE 4 MG/ML CPJ (NOT FOR IM USE) IV PRN ×2 (04:40→08:40)
[2019-10-05] MEDS ORDERED: PROPOFOL 10MG/ML 100ML 100 ML IV PRN (05:30)
[2019-10-05] MEDS: OMEPRAZOLE 20MG CAPSULE EXTENDED RELEASE PO SCH (05:40)
[2019-10-05 05:47] LABS: HEMATOCRIT. 29.8 % (36.0-48.0); HEMOGLOBIN. 9.3 g/dL (12.0-16.0); MEAN CORPUSCULAR HEMOGLOBIN 27.7 pg (28.0-32.0); MEAN CORPUSCULAR VOLUME 88.7 fL (81.0-99.0); MEAN PLATELET VOLUME 8.1 fl (7.4-10.4); PLATELET 368 x1000/uL (130-400); RED BLOOD CELL COUNT 3.36 mill/uL (4.2-5.4); RED CELL DISTRIBUTION WIDTH 15.8 % (11.6-14.6)
[2019-10-05] MEDS: PROPOFOL 10MG/ML 100ML 100 ML IV PRN ×6 (05:47→23:39)
[2019-10-05 06:03] LABS: CHLORIDE 104 mEq/L (98-107)
[2019-10-05] MEDS: BLOOD SUGAR DIAGNOSTIC STRIP TEST SCH ×4 (06:08→23:27)
[2019-10-05 06:29] LABS: BG BASE EXCESS 2.5 mmol/L (-2.0-2.0); BG CARBOXYHEMOGLOBIN 0.3 % (0.5-1.5); BG DEOXYHEMOGLOBIN 11.8 % (0.0-5.0); BG FRACTION INSPIRED OXYGEN 50; BG HCO3 ACT 28.6 mmol/L (22.0-26.0); BG METHEMOGLOBIN 0.3 % (0.0-1.5); BG OXYGEN SATURATION 88.1 % (92.0-98.5); BG OXYHEMOGLOBIN 87.6 % (94.0-97.0); BG PH 7.358 (7.350-7.450); BG PO2 50.5 mmHg (75.0-100.0); BG SAMPLE SITE LEFT RADIAL; BG TIDAL VOLUME(mL) 500 mL; BG TOTAL HEMOGLOBIN 10.1 g/dL (12.0-18.0); BG VENT MODE VENT - A/C; BG VENT RATE 18 set
[2019-10-05 08:58] LABS: PLATELET ESTIMATE NORMAL
[2019-10-05] MEDS: LOSARTAN POTASSIUM 50 MG TABLET PO SCH ×2 (09:00→21:00)
[2019-10-05] MEDS: CARVEDILOL 12.5MG TABLET PO SCH ×2 (09:00→21:00)
[2019-10-05] MEDS: AMLODIPINE 10MG TABLET PO SCH (09:00)
[2019-10-05] MEDS: SODIUM HYPOCHLORITE 0.125% 473ML SOLUTION TOP SCH (09:14)
[2019-10-05] MEDS ORDERED: LACTULOSE 20G/30ML UDC PO NR (10:00)
[2019-10-05] MEDS: PANTOPRAZOLE SODIUM 40 MG/VIAL IV SCH (10:41)
[2019-10-05] MEDS: INSULIN GLARGINE UD 100 UNITS/ML SYR SUBCUT SCH ×2 (10:41→21:14)
[2019-10-05] MEDS: SODIUM CHLORIDE 0.9% 1,000 ML IV SCH (10:42)
[2019-10-05] MEDS: NICARDIPINE 100 MG in SODIUM CHLORIDE 0.9% 60 ML IV PRN ×2 (11:48→18:18)
[2019-10-05] MEDS: LABETALOL 5MG/ML SYR 20 MG/4 ML SYRINGE IV PRN (13:26)
[2019-10-05] MEDS: HYDRALAZINE HCL 100MG TABLET PO SCH ×2 (14:00→21:14)
[2019-10-05 17:13] LABS: BG BASE EXCESS 2.3 mmol/L (-2.0-2.0); BG CARBOXYHEMOGLOBIN 0.3 % (0.5-1.5); BG DEOXYHEMOGLOBIN 5.2 % (0.0-5.0); BG FRACTION INSPIRED OXYGEN 85; BG HCO3 ACT 27.4 mmol/L (22.0-26.0); BG METHEMOGLOBIN 0.1 % (0.0-1.5); BG OXYGEN SATURATION 94.8 % (92.0-98.5); BG OXYHEMOGLOBIN 94.4 % (94.0-97.0); BG PCO2 44.9 mmHg (35.0-45.0); BG PH 7.403 (7.350-7.450); BG PO2 71.8 mmHg (75.0-100.0); BG SAMPLE SITE RIGHT RADIAL; BG TIDAL VOLUME(mL) 500 mL; BG TOTAL HEMOGLOBIN 9.9 g/dL (12.0-18.0); BG VENT MODE VENT - A/C; BG VENT RATE 18 set
[2019-10-05] MEDS ORDERED: HYDRALAZINE 20MG/ML VIAL IV NR (17:30)
[2019-10-06] VITALS (90 sets, daily range): BP systolic 108–154; BP diastolic 57–80
[2019-10-06] MEDS: NICARDIPINE 100 MG in SODIUM CHLORIDE 0.9% 60 ML IV PRN ×3 (01:39→18:28)
[2019-10-06] MEDS: DEXAMETHASONE 4MG/ML 1ML VIAL IV SCH ×4 (02:44→21:45)
[2019-10-06] MEDS: PROPOFOL 10MG/ML 100ML 100 ML IV PRN ×4 (05:35→19:37)
[2019-10-06] MEDS: HYDRALAZINE HCL 100MG TABLET PO SCH ×3 (05:36→21:27)
[2019-10-06 05:40] LABS: HEMATOCRIT. 29.6 % (36.0-48.0); HEMOGLOBIN. 9.6 g/dL (12.0-16.0); MEAN CORPUSCULAR HEMOGLOBIN 27.8 pg (28.0-32.0); MEAN CORPUSCULAR VOLUME 85.5 fL (81.0-99.0); MEAN PLATELET VOLUME 8.2 fl (7.4-10.4); PLATELET 372 x1000/uL (130-400); RED BLOOD CELL COUNT 3.47 mill/uL (4.2-5.4); RED CELL DISTRIBUTION WIDTH 15.6 % (11.6-14.6)
[2019-10-06] MEDS: BLOOD SUGAR DIAGNOSTIC STRIP TEST SCH ×3 (05:41→17:52)
[2019-10-06] MEDS: INSULIN LISPRO 100 UNITS/ML SUBCUT SCH ×3 (05:46→18:04)
[2019-10-06 08:16] LABS: CHLORIDE 106 mEq/L (98-107)
[2019-10-06 08:21] LABS: PHOSPHORUS 1.6 mg/dL (2.5-4.9)
[2019-10-06] MEDS: CARVEDILOL 12.5MG TABLET PO SCH (09:00)
[2019-10-06 09:11] LABS: BG BASE EXCESS 3.8 mmol/L (-2.0-2.0); BG CARBOXYHEMOGLOBIN 0.2 % (0.5-1.5); BG DEOXYHEMOGLOBIN 1.8 % (0.0-5.0); BG FRACTION INSPIRED OXYGEN 85; BG HCO3 ACT 28.3 mmol/L (22.0-26.0); BG METHEMOGLOBIN 0.3 % (0.0-1.5); BG OXYGEN SATURATION 98.2 % (92.0-98.5); BG OXYHEMOGLOBIN 97.7 % (94.0-97.0); BG PCO2 42.1 mmHg (35.0-45.0); BG PH 7.445 (7.350-7.450); BG PO2 111.5 mmHg (75.0-100.0); BG SAMPLE SITE RIGHT RADIAL; BG TIDAL VOLUME(mL) 500 mL; BG TOTAL HEMOGLOBIN 10.1 g/dL (12.0-18.0); BG VENT MODE VENT - A/C; BG VENT RATE 18 set
[2019-10-06] MEDS: PANTOPRAZOLE SODIUM 40 MG/VIAL IV SCH (09:29)
[2019-10-06] MEDS: LOSARTAN POTASSIUM 50 MG TABLET PO SCH ×2 (09:33→21:45)
[2019-10-06] MEDS: AMLODIPINE 10MG TABLET PO SCH (09:36)
[2019-10-06 10:00] LABS: PLATELET ESTIMATE NORMAL
[2019-10-06] MEDS: INSULIN GLARGINE UD 100 UNITS/ML SYR SUBCUT SCH ×2 (10:29→21:47)
[2019-10-06] MEDS: SODIUM CHLORIDE 0.9% 1,000 ML IV SCH (10:30)
[2019-10-06] MEDS ORDERED: PROPOFOL 10MG/ML 100ML 100 ML IV PRN (11:30)
[2019-10-06] MEDS: FENTANYL CITRATE/PF 1,000 MCG in SODIUM CHLORIDE 0.9% 80 ML IV PRN (11:59)
[2019-10-06] MEDS: IPRATROPIUM/ALBUTEROL 0.5-3(2.5)MG/3ML NEB HHN SCH ×3 (12:52→16:03)
[2019-10-06] MEDS: ACETYLCYSTEINE 100MG/ML 10% VIAL 4ML INH SCH ×2 (12:55→16:03)
[2019-10-06] MEDS ORDERED: LIDOCAINE HCL 1% 20ML VIAL (Pyxis) INJ ONE (14:23)
[2019-10-06] MEDS ORDERED: IOPAMIDOL 61% 300/15 ML VIAL IT ONE (14:32)
[2019-10-07] VITALS (97 sets, daily range): BP systolic 88–125; BP diastolic 52–79
[2019-10-07] MEDS: IPRATROPIUM/ALBUTEROL 0.5-3(2.5)MG/3ML NEB HHN SCH ×6 (00:10→20:19)
[2019-10-07] MEDS: ACETYLCYSTEINE 100MG/ML 10% VIAL 4ML INH SCH ×3 (00:10→16:50)
[2019-10-07] MEDS: BLOOD SUGAR DIAGNOSTIC STRIP TEST SCH ×4 (00:13→18:25)
[2019-10-07] MEDS: PROPOFOL 10MG/ML 100ML 100 ML IV PRN ×2 (00:19→05:47)
[2019-10-07] MEDS: INSULIN LISPRO 100 UNITS/ML SUBCUT SCH ×4 (00:20→18:35)
[2019-10-07] MEDS: DEXAMETHASONE 4MG/ML 1ML VIAL IV SCH ×3 (03:57→21:53)
[2019-10-07] MEDS: FENTANYL CITRATE/PF 1,000 MCG in SODIUM CHLORIDE 0.9% 80 ML IV PRN (05:46)
[2019-10-07 05:56] LABS: HEMATOCRIT. 30.9 % (36.0-48.0); HEMOGLOBIN. 10.1 g/dL (12.0-16.0); MEAN CORPUSCULAR HEMOGLOBIN 28.2 pg (28.0-32.0); MEAN PLATELET VOLUME 8.2 fl (7.4-10.4); PLATELET 366 x1000/uL (130-400); RED BLOOD CELL COUNT 3.59 mill/uL (4.2-5.4); RED CELL DISTRIBUTION WIDTH 15.5 % (11.6-14.6)
[2019-10-07] MEDS: HYDRALAZINE HCL 100MG TABLET PO SCH ×3 (06:00→21:48)
[2019-10-07 06:01] LABS: CHLORIDE 108 mEq/L (98-107)
[2019-10-07] MEDS: SODIUM HYPOCHLORITE 0.125% 473ML SOLUTION TOP SCH (06:08)
[2019-10-07 06:10] LABS: PHOSPHORUS 2.3 mg/dL (2.5-4.9)
[2019-10-07 08:26] LABS: BG BASE EXCESS 2.3 mmol/L (-2.0-2.0); BG CARBOXYHEMOGLOBIN 0.2 % (0.5-1.5); BG DEOXYHEMOGLOBIN 1.4 % (0.0-5.0); BG FRACTION INSPIRED OXYGEN 85; BG HCO3 ACT 26.7 mmol/L (22.0-26.0); BG METHEMOGLOBIN 0.2 % (0.0-1.5); BG OXYGEN SATURATION 98.6 % (92.0-98.5); BG OXYHEMOGLOBIN 98.2 % (94.0-97.0); BG PCO2 40.5 mmHg (35.0-45.0); BG PH 7.437 (7.350-7.450); BG PO2 134.6 mmHg (75.0-100.0); BG SAMPLE SITE RIGHT RADIAL; BG TIDAL VOLUME(mL) 500 mL; BG TOTAL HEMOGLOBIN 10.3 g/dL (12.0-18.0); BG VENT MODE VENT - A/C; BG VENT RATE 18 set
[2019-10-07] MEDS: PANTOPRAZOLE SODIUM 40 MG/VIAL IV SCH (08:51)
[2019-10-07] MEDS: LOSARTAN POTASSIUM 50 MG TABLET PO SCH ×2 (08:57→14:30)
[2019-10-07] MEDS: AMLODIPINE 10MG TABLET PO SCH (08:57)
[2019-10-07 10:20] LABS: PLATELET ESTIMATE NORMAL
[2019-10-07] MEDS: INSULIN GLARGINE UD 100 UNITS/ML SYR SUBCUT SCH (11:14)
[2019-10-07] MEDS ORDERED: INSULIN GLARGINE UD 100 UNITS/ML SYR SUBCUT SCH (22:00)
[2019-10-08] VITALS (92 sets, daily range): BP systolic 83–195; BP diastolic 50–88
[2019-10-08] MEDS: BLOOD SUGAR DIAGNOSTIC STRIP TEST SCH ×5 (00:27→23:47)
[2019-10-08] MEDS: INSULIN LISPRO 100 UNITS/ML SUBCUT SCH ×5 (00:28→23:47)
[2019-10-08] MEDS: IPRATROPIUM/ALBUTEROL 0.5-3(2.5)MG/3ML NEB HHN SCH ×7 (00:34→20:10)
[2019-10-08] MEDS: ACETYLCYSTEINE 100MG/ML 10% VIAL 4ML INH SCH ×3 (00:35→16:30)
[2019-10-08 05:47] LABS: HEMATOCRIT. 32.2 % (36.0-48.0); HEMOGLOBIN. 10.4 g/dL (12.0-16.0); MEAN CORPUSCULAR HEMOGLOBIN 27.3 pg (28.0-32.0); MEAN CORPUSCULAR VOLUME 84.9 fL (81.0-99.0); PLATELET 383 x1000/uL (130-400); RED CELL DISTRIBUTION WIDTH 15.7 % (11.6-14.6)
[2019-10-08 05:55] LABS: CHLORIDE 109 mEq/L (98-107)
[2019-10-08] MEDS: HYDRALAZINE HCL 100MG TABLET PO SCH (06:00)
[2019-10-08] MEDS: SODIUM HYPOCHLORITE 0.125% 473ML SOLUTION TOP SCH (08:57)
[2019-10-08] MEDS: DEXAMETHASONE 4MG/ML 1ML VIAL IV SCH ×2 (08:58→21:22)
[2019-10-08] MEDS: LOSARTAN POTASSIUM 50 MG TABLET PO SCH (08:58)
[2019-10-08] MEDS: PANTOPRAZOLE SODIUM 40 MG/VIAL IV SCH (08:58)
[2019-10-08] MEDS ORDERED: AMLODIPINE 5MG TABLET PO SCH (09:00)
[2019-10-08 09:18] LABS: PLATELET ESTIMATE NORMAL
[2019-10-08 09:44] LABS: BG BASE EXCESS 5.1 mmol/L (-2.0-2.0); BG CARBOXYHEMOGLOBIN 0.3 % (0.5-1.5); BG DEOXYHEMOGLOBIN 2.6 % (0.0-5.0); BG FRACTION INSPIRED OXYGEN 60; BG HCO3 ACT 30.6 mmol/L (22.0-26.0); BG METHEMOGLOBIN 0.2 % (0.0-1.5); BG OXYGEN SATURATION 97.4 % (92.0-98.5); BG OXYHEMOGLOBIN 96.9 % (94.0-97.0); BG PCO2 49.8 mmHg (35.0-45.0); BG PH 7.407 (7.350-7.450); BG PO2 99.2 mmHg (75.0-100.0); BG SAMPLE SITE RIGHT RADIAL; BG TIDAL VOLUME(mL) 500 mL; BG TOTAL HEMOGLOBIN 10.6 g/dL (12.0-18.0); BG VENT MODE VENT - A/C; BG VENT RATE 16 set
[2019-10-08] MEDS ORDERED: POTASSIUM CHLORIDE 20MEQ/PACKET PO SCH (10:45)
[2019-10-08] MEDS ORDERED: SODIUM CHLORIDE 0.9% 100 ML IV SCH (12:15)
[2019-10-08] MEDS: SODIUM CHLORIDE 0.9% 1,000 ML IV SCH (12:49)
[2019-10-08] MEDS: INSULIN GLARGINE UD 100 UNITS/ML SYR SUBCUT SCH (21:21)
[2019-10-09] VITALS (85 sets, daily range): BP systolic 80–181; BP diastolic 45–104
[2019-10-09] MEDS: IPRATROPIUM/ALBUTEROL 0.5-3(2.5)MG/3ML NEB HHN SCH ×4 (00:31→20:15)
[2019-10-09] MEDS: ACETYLCYSTEINE 100MG/ML 10% VIAL 4ML INH SCH ×2 (00:31→08:40)
[2019-10-09] MEDS: SODIUM CHLORIDE 0.9% 1,000 ML IV SCH ×2 (01:35→17:17)
[2019-10-09 05:11] LABS: HEMATOCRIT. 32.6 % (36.0-48.0); HEMOGLOBIN. 10.3 g/dL (12.0-16.0); MEAN CORPUSCULAR HEMOGLOBIN 27.7 pg (28.0-32.0); MEAN CORPUSCULAR VOLUME 87.2 fL (81.0-99.0); MEAN PLATELET VOLUME 8.6 fl (7.4-10.4); PLATELET 340 x1000/uL (130-400); RED BLOOD CELL COUNT 3.73 mill/uL (4.2-5.4); RED CELL DISTRIBUTION WIDTH 15.7 % (11.6-14.6)
[2019-10-09 05:16] LABS: CHLORIDE 111 mEq/L (98-107)
[2019-10-09] MEDS: BLOOD SUGAR DIAGNOSTIC STRIP TEST SCH ×3 (05:57→17:37)
[2019-10-09] MEDS: INSULIN LISPRO 100 UNITS/ML SUBCUT SCH ×3 (06:00→18:00)
[2019-10-09 08:14] LABS: PLATELET ESTIMATE NORMAL
[2019-10-09] MEDS: DEXAMETHASONE 4MG/ML 1ML VIAL IV SCH ×2 (08:46→21:16)
[2019-10-09] MEDS: SODIUM HYPOCHLORITE 0.125% 473ML SOLUTION TOP SCH (08:46)
[2019-10-09] MEDS: PANTOPRAZOLE SODIUM 40 MG/VIAL IV SCH (08:46)
[2019-10-09 08:49] LABS: BG BASE EXCESS 2.8 mmol/L (-2.0-2.0); BG CARBOXYHEMOGLOBIN 0.3 % (0.5-1.5); BG FRACTION INSPIRED OXYGEN 40; BG HCO3 ACT 29.9 mmol/L (22.0-26.0); BG METHEMOGLOBIN 0.3 % (0.0-1.5); BG OXYHEMOGLOBIN 92.4 % (94.0-97.0); BG PCO2 58.9 mmHg (35.0-45.0); BG PH 7.323 (7.350-7.450); BG PO2 69.9 mmHg (75.0-100.0); BG SAMPLE SITE RIGHT RADIAL; BG TIDAL VOLUME(mL) 500 mL; BG TOTAL HEMOGLOBIN 10.7 g/dL (12.0-18.0); BG VENT MODE VENT - A/C; BG VENT RATE 16 set
[2019-10-09] MEDS: LOSARTAN POTASSIUM 50 MG TABLET PO SCH (09:00)
[2019-10-09] MEDS ORDERED: LORAZEPAM 2MG/ML CPJ IV NR (09:31)
[2019-10-09] MEDS: INSULIN GLARGINE UD 100 UNITS/ML SYR SUBCUT SCH ×2 (10:40→22:04)
[2019-10-09 11:42] LABS: BG BASE EXCESS 3.5 mmol/L (-2.0-2.0); BG CARBOXYHEMOGLOBIN 0.3 % (0.5-1.5); BG DEOXYHEMOGLOBIN 19.6 % (0.0-5.0); BG FRACTION INSPIRED OXYGEN 40; BG HCO3 ACT 37.7 mmol/L (22.0-26.0); BG METHEMOGLOBIN 0.4 % (0.0-1.5); BG OXYGEN SATURATION 80.3 % (92.0-98.5); BG OXYHEMOGLOBIN 79.7 % (94.0-97.0); BG PCO2 143.2 mmHg (35.0-45.0); BG PH 7.038 (7.350-7.450); BG PO2 60.7 mmHg (75.0-100.0); BG PRESSURE SUPPORT 8; BG SAMPLE SITE RIGHT RADIAL; BG TOTAL HEMOGLOBIN 11.5 g/dL (12.0-18.0); BG VENT MODE MASK - CPAP
[2019-10-10] VITALS (85 sets, daily range): BP systolic 121–170; BP diastolic 58–101
[2019-10-10] MEDS: BLOOD SUGAR DIAGNOSTIC STRIP TEST SCH ×5 (00:06→23:35)
[2019-10-10] MEDS: INSULIN LISPRO 100 UNITS/ML SUBCUT SCH ×5 (00:11→23:40)
[2019-10-10] MEDS: IPRATROPIUM/ALBUTEROL 0.5-3(2.5)MG/3ML NEB HHN SCH ×7 (00:17→23:35)
[2019-10-10] MEDS: ACETYLCYSTEINE 100MG/ML 10% VIAL 4ML INH SCH ×4 (00:17→23:35)
[2019-10-10] MEDS: LABETALOL 5MG/ML SYR 20 MG/4 ML SYRINGE IV PRN (00:50)
[2019-10-10] MEDS: CLONIDINE 0.1MG TABLET PO PRN (02:06)
[2019-10-10] MEDS: NICARDIPINE 100 MG in SODIUM CHLORIDE 0.9% 60 ML IV PRN (05:05)
[2019-10-10 05:23] LABS: HEMATOCRIT. 31.1 % (36.0-48.0); HEMOGLOBIN. 9.9 g/dL (12.0-16.0); MEAN CORPUSCULAR HEMOGLOBIN 27.6 pg (28.0-32.0); MEAN PLATELET VOLUME 8.3 fl (7.4-10.4); PLATELET 294 x1000/uL (130-400); RED BLOOD CELL COUNT 3.58 mill/uL (4.2-5.4)
[2019-10-10 05:32] LABS: CHLORIDE 114 mEq/L (98-107)
[2019-10-10] MEDS: SODIUM CHLORIDE 0.9% 1,000 ML IV SCH (06:00)
[2019-10-10 07:18] LABS: NUCLEATED RED BLOOD CELLS 1 /100 WBC
[2019-10-10 07:19] LABS: PLATELET ESTIMATE NORMAL
[2019-10-10] MEDS: MORPHINE SULFATE 4 MG/ML CPJ (NOT FOR IM USE) IV PRN (08:08)
[2019-10-10] MEDS: SODIUM HYPOCHLORITE 0.125% 473ML SOLUTION TOP SCH (09:09)
[2019-10-10] MEDS: DEXAMETHASONE 4MG/ML 1ML VIAL IV SCH ×2 (09:10→21:28)
[2019-10-10] MEDS: PANTOPRAZOLE SODIUM 40 MG/VIAL IV SCH (09:11)
[2019-10-10] MEDS: INSULIN GLARGINE UD 100 UNITS/ML SYR SUBCUT SCH ×2 (11:31→21:30)
[2019-10-10] MEDS: LOSARTAN POTASSIUM 50 MG TABLET PO SCH ×2 (11:35→21:29)
[2019-10-10] MEDS: SODIUM CHLORIDE 0.45% 1,000 ML IV SCH (14:16)
[2019-10-11] VITALS (67 sets, daily range): BP systolic 115–178; BP diastolic 58–99
[2019-10-11] MEDS: IPRATROPIUM/ALBUTEROL 0.5-3(2.5)MG/3ML NEB HHN SCH ×5 (02:55→20:20)
[2019-10-11 05:45] LABS: HEMATOCRIT. 29.9 % (36.0-48.0); HEMOGLOBIN. 9.6 g/dL (12.0-16.0); MEAN CORPUSCULAR HEMOGLOBIN 27.9 pg (28.0-32.0); MEAN CORPUSCULAR VOLUME 87.1 fL (81.0-99.0); MEAN PLATELET VOLUME 8.7 fl (7.4-10.4); PLATELET 243 x1000/uL (130-400); RED BLOOD CELL COUNT 3.43 mill/uL (4.2-5.4); RED CELL DISTRIBUTION WIDTH 16.2 % (11.6-14.6)
[2019-10-11 05:58] LABS: CHLORIDE 108 mEq/L (98-107)
[2019-10-11] MEDS: BLOOD SUGAR DIAGNOSTIC STRIP TEST SCH ×3 (06:00→17:33)
[2019-10-11] MEDS: NICARDIPINE 100 MG in SODIUM CHLORIDE 0.9% 60 ML IV PRN ×2 (06:23→22:32)
[2019-10-11] MEDS: INSULIN LISPRO 100 UNITS/ML SUBCUT SCH ×3 (07:00→17:32)
[2019-10-11 08:36] LABS: BG BASE EXCESS 4.9 mmol/L (-2.0-2.0); BG CARBOXYHEMOGLOBIN 0.3 % (0.5-1.5); BG DEOXYHEMOGLOBIN 3.1 % (0.0-5.0); BG FRACTION INSPIRED OXYGEN 40; BG METHEMOGLOBIN 0.3 % (0.0-1.5); BG OXYGEN SATURATION 96.9 % (92.0-98.5); BG OXYHEMOGLOBIN 96.3 % (94.0-97.0); BG PCO2 40.9 mmHg (35.0-45.0); BG PH 7.469 (7.350-7.450); BG PO2 83.3 mmHg (75.0-100.0); BG SAMPLE SITE RIGHT RADIAL; BG TIDAL VOLUME(mL) 500 mL; BG TOTAL HEMOGLOBIN 10.5 g/dL (12.0-18.0); BG VENT MODE VENT - A/C; BG VENT RATE 16 set
[2019-10-11] MEDS: ACETYLCYSTEINE 100MG/ML 10% VIAL 4ML INH SCH (08:52)
[2019-10-11] MEDS: LOSARTAN POTASSIUM 50 MG TABLET PO SCH ×2 (09:56→21:09)
[2019-10-11] MEDS: PANTOPRAZOLE SODIUM 40 MG/VIAL IV SCH (09:56)
[2019-10-11] MEDS: DEXAMETHASONE 4MG/ML 1ML VIAL IV SCH (09:56)
[2019-10-11] MEDS: INSULIN GLARGINE UD 100 UNITS/ML SYR SUBCUT SCH ×2 (10:03→21:11)
[2019-10-11] MEDS: SODIUM CHLORIDE 0.45% 1,000 ML IV SCH (11:17)
[2019-10-11 11:25] LABS: NUCLEATED RED BLOOD CELLS 1 /100 WBC; PLATELET ESTIMATE NORMAL
[2019-10-11] MEDS: LEVOFLOXACIN 500MG PREMIX 100 ML IV SCH (12:54)
[2019-10-11] MEDS: LABETALOL 5MG/ML SYR 20 MG/4 ML SYRINGE IV PRN (14:42)
[2019-10-11] MEDS: SODIUM HYPOCHLORITE 0.125% 473ML SOLUTION TOP SCH (14:58)
[2019-10-11] MEDS: METRONIDAZOLE 500MG TABLET PO SCH ×2 (17:13→21:09)
[2019-10-11] MEDS: HYDRALAZINE HCL 25MG TABLET PO SCH (21:09)
[2019-10-12] VITALS (91 sets, daily range): BP systolic 80–157; BP diastolic 45–79
[2019-10-12] MEDS: IPRATROPIUM/ALBUTEROL 0.5-3(2.5)MG/3ML NEB HHN SCH ×6 (00:57→20:00)
[2019-10-12 05:32] LABS: CHLORIDE 104 mEq/L (98-107)
[2019-10-12 05:34] LABS: HEMATOCRIT. 29.4 % (36.0-48.0); HEMOGLOBIN. 9.6 g/dL (12.0-16.0); MEAN CORPUSCULAR HEMOGLOBIN 28.1 pg (28.0-32.0); MEAN CORPUSCULAR VOLUME 85.8 fL (81.0-99.0); MEAN PLATELET VOLUME 8.8 fl (7.4-10.4); PLATELET 230 x1000/uL (130-400); RED BLOOD CELL COUNT 3.42 mill/uL (4.2-5.4); RED CELL DISTRIBUTION WIDTH 16.8 % (11.6-14.6)
[2019-10-12] MEDS: SODIUM CHLORIDE 0.45% 1,000 ML IV SCH (05:45)
[2019-10-12] MEDS: INSULIN LISPRO 100 UNITS/ML SUBCUT SCH ×5 (06:00→23:41)
[2019-10-12] MEDS: METRONIDAZOLE 500MG TABLET PO SCH ×2 (06:21→20:49)
[2019-10-12] MEDS: BLOOD SUGAR DIAGNOSTIC STRIP TEST SCH ×5 (06:22→23:41)
[2019-10-12 08:15] LABS: BG BASE EXCESS 7.8 mmol/L (-2.0-2.0); BG CARBOXYHEMOGLOBIN 0.3 % (0.5-1.5); BG DEOXYHEMOGLOBIN 5.6 % (0.0-5.0); BG FRACTION INSPIRED OXYGEN 40; BG HCO3 ACT 32.2 mmol/L (22.0-26.0); BG METHEMOGLOBIN 0.3 % (0.0-1.5); BG OXYGEN SATURATION 94.4 % (92.0-98.5); BG OXYHEMOGLOBIN 93.8 % (94.0-97.0); BG PCO2 44.5 mmHg (35.0-45.0); BG PH 7.477 (7.350-7.450); BG PO2 65.9 mmHg (75.0-100.0); BG PRESSURE SUPPORT 12; BG SAMPLE SITE RIGHT RADIAL; BG TIDAL VOLUME(mL) 500 mL; BG TOTAL HEMOGLOBIN 11.3 g/dL (12.0-18.0); BG VENT MODE VENT - SIMV; BG VENT RATE 8 set
[2019-10-12] MEDS: HYDRALAZINE HCL 25MG TABLET PO SCH ×2 (09:03→20:48)
[2019-10-12] MEDS: DEXAMETHASONE 4MG/ML 1ML VIAL IV SCH (09:03)
[2019-10-12] MEDS: PANTOPRAZOLE SODIUM 40 MG/VIAL IV SCH (09:03)
[2019-10-12] MEDS: LOSARTAN POTASSIUM 50 MG TABLET PO SCH ×2 (09:03→20:49)
[2019-10-12] MEDS: SODIUM HYPOCHLORITE 0.125% 473ML SOLUTION TOP SCH (09:05)
[2019-10-12 09:18] LABS: PLATELET ESTIMATE NORMAL
[2019-10-12] MEDS: POLYETHYLENE GLYCOL 3350 (17GM) 1 DOSE PACK PO SCH (10:58)
[2019-10-12] MEDS: LEVOFLOXACIN 500MG PREMIX 100 ML IV SCH (10:59)
[2019-10-12] MEDS: INSULIN GLARGINE UD 100 UNITS/ML SYR SUBCUT SCH ×2 (11:22→21:00)
[2019-10-12] MEDS: LABETALOL 5MG/ML SYR 20 MG/4 ML SYRINGE IV PRN (11:58)
[2019-10-12] MEDS ORDERED: AMPICILLIN SOD/SULBACTAM NA 3 G in SODIUM CHLORIDE 0.9% 100 ML IV SCH (14:30)
[2019-10-12] MEDS ORDERED: VANCOMYCIN 2,000 MG in DEXT 5% WATER 500 ML IV SCH (17:00)
[2019-10-12] MEDS: AZTREONAM 1G in DEXTROSE 5% WATER 50ML IV SCH (17:03)
[2019-10-12] MEDS: NICARDIPINE 100 MG in SODIUM CHLORIDE 0.9% 60 ML IV PRN ×2 (17:31→17:53)
[2019-10-13] VITALS (100 sets, daily range): BP systolic 70–195; BP diastolic 48–109
[2019-10-13] MEDS: AZTREONAM 1G in DEXTROSE 5% WATER 50ML IV SCH ×3 (00:15→16:06)
[2019-10-13] MEDS: SODIUM CHLORIDE 0.45% 1,000 ML IV SCH ×2 (01:45→21:53)
[2019-10-13] MEDS: NICARDIPINE 100 MG in SODIUM CHLORIDE 0.9% 60 ML IV PRN ×2 (01:58→11:51)
[2019-10-13] MEDS: IPRATROPIUM/ALBUTEROL 0.5-3(2.5)MG/3ML NEB HHN SCH ×6 (04:00→20:42)
[2019-10-13] MEDS ORDERED: VANCOMYCIN 1500MG in DEXTROSE 5% WATER 250ML IV SCH (05:00)
[2019-10-13 05:48] LABS: HEMATOCRIT. 29.5 % (36.0-48.0); HEMOGLOBIN. 9.5 g/dL (12.0-16.0); MEAN CORPUSCULAR VOLUME 86.6 fL (81.0-99.0); MEAN PLATELET VOLUME 8.9 fl (7.4-10.4); PLATELET 174 x1000/uL (130-400); RED CELL DISTRIBUTION WIDTH 16.9 % (11.6-14.6)
[2019-10-13] MEDS: BLOOD SUGAR DIAGNOSTIC STRIP TEST SCH ×4 (06:00→23:28)
[2019-10-13 06:05] LABS: CHLORIDE 98 mEq/L (98-107)
[2019-10-13] MEDS: METRONIDAZOLE 500MG TABLET PO SCH ×3 (07:01→21:53)
[2019-10-13] MEDS: INSULIN LISPRO 100 UNITS/ML SUBCUT SCH ×4 (07:02→23:24)
[2019-10-13] MEDS: HYDRALAZINE HCL 25MG TABLET PO SCH ×2 (09:03→20:01)
[2019-10-13] MEDS: LOSARTAN POTASSIUM 50 MG TABLET PO SCH ×2 (09:03→20:00)
[2019-10-13] MEDS: PANTOPRAZOLE SODIUM 40 MG/VIAL IV SCH (09:03)
[2019-10-13] MEDS: DEXAMETHASONE 4MG/ML 1ML VIAL IV SCH (09:03)
[2019-10-13] MEDS: POLYETHYLENE GLYCOL 3350 (17GM) 1 DOSE PACK PO SCH (09:04)
[2019-10-13] MEDS: SODIUM HYPOCHLORITE 0.125% 473ML SOLUTION TOP SCH (09:04)
[2019-10-13 09:30] LABS: BG BASE EXCESS 12.3 mmol/L (-2.0-2.0); BG CARBOXYHEMOGLOBIN 0.3 % (0.5-1.5); BG DEOXYHEMOGLOBIN 6.3 % (0.0-5.0); BG FRACTION INSPIRED OXYGEN 40; BG METHEMOGLOBIN 0.5 % (0.0-1.5); BG OXYGEN SATURATION 93.6 % (92.0-98.5); BG OXYHEMOGLOBIN 92.9 % (94.0-97.0); BG PCO2 48.9 mmHg (35.0-45.0); BG PH 7.497 (7.350-7.450); BG PO2 64.5 mmHg (75.0-100.0); BG PRESSURE SUPPORT 8; BG SAMPLE SITE RIGHT RADIAL; BG TIDAL VOLUME(mL) 500 mL; BG TOTAL HEMOGLOBIN 10.2 g/dL (12.0-18.0); BG VENT MODE VENT - SIMV; BG VENT RATE 6 set
[2019-10-13 09:43] LABS: PLATELET ESTIMATE NORMAL
[2019-10-13 11:53] LABS: BG BASE EXCESS 11.4 mmol/L (-2.0-2.0); BG CARBOXYHEMOGLOBIN 0.3 % (0.5-1.5); BG DEOXYHEMOGLOBIN 10.5 % (0.0-5.0); BG FRACTION INSPIRED OXYGEN 40; BG HCO3 ACT 38.1 mmol/L (22.0-26.0); BG METHEMOGLOBIN 0.3 % (0.0-1.5); BG OXYGEN SATURATION 89.4 % (92.0-98.5); BG OXYHEMOGLOBIN 88.9 % (94.0-97.0); BG PCO2 62.2 mmHg (35.0-45.0); BG PH 7.405 (7.350-7.450); BG PO2 61.9 mmHg (75.0-100.0); BG PRESSURE SUPPORT 8; BG SAMPLE SITE RIGHT RADIAL; BG TOTAL HEMOGLOBIN 10.8 g/dL (12.0-18.0); BG VENT MODE VENT - CPAP
[2019-10-13] MEDS ORDERED: ETOMIDATE 2MG/ML 10ML VIAL IV ONE (12:56)
[2019-10-13 13:39] LABS: BG BASE EXCESS 7.1 mmol/L (-2.0-2.0); BG CARBOXYHEMOGLOBIN 0.2 % (0.5-1.5); BG DEOXYHEMOGLOBIN 5.7 % (0.0-5.0); BG FRACTION INSPIRED OXYGEN 100; BG HCO3 ACT 31.4 mmol/L (22.0-26.0); BG METHEMOGLOBIN 0.1 % (0.0-1.5); BG OXYGEN SATURATION 94.3 % (92.0-98.5); BG PCO2 43.9 mmHg (35.0-45.0); BG PH 7.473 (7.350-7.450); BG PO2 71.3 mmHg (75.0-100.0); BG SAMPLE SITE RIGHT RADIAL; BG TIDAL VOLUME(mL) 500 mL; BG TOTAL HEMOGLOBIN 10.6 g/dL (12.0-18.0); BG VENT MODE VENT - A/C; BG VENT RATE 16 set
[2019-10-13] MEDS: VANCOMYCIN 1500MG in DEXTROSE 5% WATER 250ML IV SCH (17:49)
[2019-10-13] MEDS: INSULIN GLARGINE UD 100 UNITS/ML SYR SUBCUT SCH (21:43)
[2019-10-13] MEDS: MORPHINE SULFATE 4 MG/ML CPJ (NOT FOR IM USE) IV PRN (23:45)
[2019-10-14] VITALS (78 sets, daily range): BP systolic 90–152; BP diastolic 50–81
[2019-10-14] MEDS: AZTREONAM 1G in DEXTROSE 5% WATER 50ML IV SCH ×3 (00:28→17:21)
[2019-10-14] MEDS: IPRATROPIUM/ALBUTEROL 0.5-3(2.5)MG/3ML NEB HHN SCH ×7 (01:07→23:44)
[2019-10-14] MEDS: INSULIN LISPRO 100 UNITS/ML SUBCUT SCH ×3 (05:06→18:00)
[2019-10-14] MEDS: METRONIDAZOLE 500MG TABLET PO SCH ×3 (05:07→20:44)
[2019-10-14] MEDS: VANCOMYCIN 1500MG in DEXTROSE 5% WATER 250ML IV SCH ×2 (05:07→18:13)
[2019-10-14] MEDS: BLOOD SUGAR DIAGNOSTIC STRIP TEST SCH ×4 (05:08→23:20)
[2019-10-14 05:25] LABS: HEMATOCRIT. 29.9 % (36.0-48.0); HEMOGLOBIN. 9.7 g/dL (12.0-16.0); MEAN CORPUSCULAR HEMOGLOBIN 27.8 pg (28.0-32.0); MEAN CORPUSCULAR VOLUME 86.3 fL (81.0-99.0); MEAN PLATELET VOLUME 9.3 fl (7.4-10.4); PLATELET 154 x1000/uL (130-400); RED BLOOD CELL COUNT 3.47 mill/uL (4.2-5.4); RED CELL DISTRIBUTION WIDTH 17.2 % (11.6-14.6)
[2019-10-14 05:30] LABS: CHLORIDE 100 mEq/L (98-107)
[2019-10-14 05:40] LABS: VANCOMYCIN TROUGH 18.2 ug/mL (5.0-10.0)
[2019-10-14 08:42] LABS: ATYPICAL LYMPHOCYTES 1
[2019-10-14 08:43] LABS: PLATELET ESTIMATE NORMAL
[2019-10-14] MEDS: SODIUM HYPOCHLORITE 0.125% 473ML SOLUTION TOP SCH (09:52)
[2019-10-14] MEDS: POLYETHYLENE GLYCOL 3350 (17GM) 1 DOSE PACK PO SCH (09:52)
[2019-10-14] MEDS: INSULIN GLARGINE UD 100 UNITS/ML SYR SUBCUT SCH ×2 (09:54→21:40)
[2019-10-14] MEDS: HYDRALAZINE HCL 25MG TABLET PO SCH ×2 (09:55→20:43)
[2019-10-14] MEDS: LOSARTAN POTASSIUM 50 MG TABLET PO SCH ×2 (09:55→20:43)
[2019-10-14] MEDS: PANTOPRAZOLE SODIUM 40 MG/VIAL IV SCH (09:56)
[2019-10-14] MEDS: SODIUM CHLORIDE 0.45% 1,000 ML IV SCH (17:24)
[2019-10-15] VITALS (40 sets, daily range): BP systolic 107–159; BP diastolic 60–78
[2019-10-15] MEDS: AZTREONAM 1G in DEXTROSE 5% WATER 50ML IV SCH ×3 (01:01→18:16)
[2019-10-15] MEDS: IPRATROPIUM/ALBUTEROL 0.5-3(2.5)MG/3ML NEB HHN SCH ×5 (03:58→20:42)
[2019-10-15] MEDS: VANCOMYCIN 1500MG in DEXTROSE 5% WATER 250ML IV SCH ×2 (05:12→18:17)
[2019-10-15] MEDS: BLOOD SUGAR DIAGNOSTIC STRIP TEST SCH ×3 (05:12→18:09)
[2019-10-15] MEDS: METRONIDAZOLE 500MG TABLET PO SCH ×3 (05:12→21:19)
[2019-10-15] MEDS: INSULIN LISPRO 100 UNITS/ML SUBCUT SCH ×4 (05:12→18:00)
[2019-10-15] MEDS: SODIUM HYPOCHLORITE 0.125% 473ML SOLUTION TOP SCH (09:00)
[2019-10-15 09:23] LABS: BG BASE EXCESS 11.8 mmol/L (-2.0-2.0); BG CARBOXYHEMOGLOBIN 0.3 % (0.5-1.5); BG DEOXYHEMOGLOBIN 3.1 % (0.0-5.0); BG FRACTION INSPIRED OXYGEN 60; BG HCO3 ACT 36.2 mmol/L (22.0-26.0); BG OXYGEN SATURATION 96.9 % (92.0-98.5); BG OXYHEMOGLOBIN 96.6 % (94.0-97.0); BG PH 7.505 (7.350-7.450); BG PO2 87.9 mmHg (75.0-100.0); BG SAMPLE SITE RIGHT RADIAL; BG TIDAL VOLUME(mL) 500 mL; BG TOTAL HEMOGLOBIN 9.7 g/dL (12.0-18.0); BG VENT MODE VENT - A/C; BG VENT RATE 16 set
[2019-10-15] MEDS: POLYETHYLENE GLYCOL 3350 (17GM) 1 DOSE PACK PO SCH (10:45)
[2019-10-15] MEDS: PANTOPRAZOLE SODIUM 40 MG/VIAL IV SCH (10:45)
[2019-10-15] MEDS: LOSARTAN POTASSIUM 50 MG TABLET PO SCH ×2 (10:45→21:00)
[2019-10-15] MEDS: HYDRALAZINE HCL 25MG TABLET PO SCH ×2 (10:46→21:20)
[2019-10-15] MEDS: INSULIN GLARGINE UD 100 UNITS/ML SYR SUBCUT SCH ×2 (10:58→21:32)
[2019-10-15] MEDS ORDERED: FUROSEMIDE 40MG/4ML VIAL IVP NR (11:30)
[2019-10-15] MEDS: SODIUM CHLORIDE 0.45% 1,000 ML IV SCH (15:53)
[2019-10-16] VITALS (91 sets, daily range): BP systolic 81–154; BP diastolic 43–84
[2019-10-16] MEDS: BLOOD SUGAR DIAGNOSTIC STRIP TEST SCH ×4 (00:03→17:13)
[2019-10-16] MEDS: IPRATROPIUM/ALBUTEROL 0.5-3(2.5)MG/3ML NEB HHN SCH ×6 (00:12→20:09)
[2019-10-16] MEDS: AZTREONAM 1G in DEXTROSE 5% WATER 50ML IV SCH ×3 (01:47→17:16)
[2019-10-16 05:28] LABS: HEMATOCRIT. 27.2 % (36.0-48.0); HEMOGLOBIN. 8.8 g/dL (12.0-16.0); MEAN CORPUSCULAR HEMOGLOBIN 28.2 pg (28.0-32.0); MEAN CORPUSCULAR VOLUME 87.3 fL (81.0-99.0); MEAN PLATELET VOLUME 10.1 fl (7.4-10.4); PLATELET 136 x1000/uL (130-400); RED BLOOD CELL COUNT 3.11 mill/uL (4.2-5.4); RED CELL DISTRIBUTION WIDTH 17.3 % (11.6-14.6)
[2019-10-16 05:48] LABS: CHLORIDE 100 mEq/L (98-107)
[2019-10-16] MEDS: VANCOMYCIN 1500MG in DEXTROSE 5% WATER 250ML IV SCH ×2 (05:50→17:16)
[2019-10-16] MEDS: METRONIDAZOLE 500MG TABLET PO SCH ×3 (05:51→21:35)
[2019-10-16] MEDS: INSULIN LISPRO 100 UNITS/ML SUBCUT SCH ×4 (05:51→19:33)
[2019-10-16 07:38] LABS: PLATELET ESTIMATE NORMAL
[2019-10-16] MEDS: SODIUM HYPOCHLORITE 0.125% 473ML SOLUTION TOP SCH (09:00)
[2019-10-16] MEDS: INSULIN GLARGINE UD 100 UNITS/ML SYR SUBCUT SCH ×2 (10:00→21:38)
[2019-10-16] MEDS: POLYETHYLENE GLYCOL 3350 (17GM) 1 DOSE PACK PO SCH (10:47)
[2019-10-16] MEDS: LOSARTAN POTASSIUM 50 MG TABLET PO SCH ×2 (10:47→21:00)
[2019-10-16] MEDS: PANTOPRAZOLE SODIUM 40 MG/VIAL IV SCH (10:47)
[2019-10-16] MEDS: HYDRALAZINE HCL 25MG TABLET PO SCH ×2 (10:48→21:36)
[2019-10-16] MEDS: SODIUM CHLORIDE 0.45% 1,000 ML IV SCH (10:48)
[2019-10-16] MEDS: FUROSEMIDE 20MG/2ML VIAL IVP SCH (10:49)
[2019-10-16 12:33] LABS: BG BASE EXCESS 5.1 mmol/L (-2.0-2.0); BG CARBOXYHEMOGLOBIN 0.3 % (0.5-1.5); BG DEOXYHEMOGLOBIN 6.9 % (0.0-5.0); BG HCO3 ACT 30.8 mmol/L (22.0-26.0); BG METHEMOGLOBIN 0.3 % (0.0-1.5); BG OXYGEN SATURATION 93.1 % (92.0-98.5); BG OXYHEMOGLOBIN 92.5 % (94.0-97.0); BG PCO2 51.4 mmHg (35.0-45.0); BG PH 7.395 (7.350-7.450); BG PO2 62.3 mmHg (75.0-100.0); BG SAMPLE SITE RIGHT RADIAL; BG TIDAL VOLUME(mL) 500 mL; BG TOTAL HEMOGLOBIN 9.4 g/dL (12.0-18.0); BG VENT MODE VENT - SIMV; BG VENT RATE 10 set
[2019-10-16] MEDS ORDERED: PHENYLEPHRINE 20 MG in DEXT 5% WATER 248 ML IV PRN (12:45)
[2019-10-17] VITALS (82 sets, daily range): BP systolic 82–179; BP diastolic 42–100
[2019-10-17] MEDS: INSULIN LISPRO 100 UNITS/ML SUBCUT SCH ×4 (00:32→17:43)
[2019-10-17] MEDS: BLOOD SUGAR DIAGNOSTIC STRIP TEST SCH ×4 (00:33→17:04)
[2019-10-17] MEDS: AZTREONAM 1G in DEXTROSE 5% WATER 50ML IV SCH ×3 (00:33→17:19)
[2019-10-17] MEDS: IPRATROPIUM/ALBUTEROL 0.5-3(2.5)MG/3ML NEB HHN SCH ×6 (01:01→20:05)
[2019-10-17 05:09] LABS: HEMOGLOBIN. 8.8 g/dL (12.0-16.0); MEAN CORPUSCULAR HEMOGLOBIN 27.6 pg (28.0-32.0); MEAN CORPUSCULAR VOLUME 87.4 fL (81.0-99.0); MEAN PLATELET VOLUME 10.2 fl (7.4-10.4); PLATELET 168 x1000/uL (130-400); RED CELL DISTRIBUTION WIDTH 17.4 % (11.6-14.6)
[2019-10-17 05:15] LABS: CHLORIDE 100 mEq/L (98-107)
[2019-10-17 05:23] LABS: VANCOMYCIN TROUGH 30.1 ug/mL (5.0-10.0)
[2019-10-17] MEDS: METRONIDAZOLE 500MG TABLET PO SCH ×3 (05:43→21:47)
[2019-10-17] MEDS: VANCOMYCIN 1500MG in DEXTROSE 5% WATER 250ML IV SCH (05:43)
[2019-10-17 07:03] LABS: PLATELET ESTIMATE NORMAL
[2019-10-17] MEDS: PANTOPRAZOLE SODIUM 40 MG/VIAL IV SCH (09:19)
[2019-10-17] MEDS: POLYETHYLENE GLYCOL 3350 (17GM) 1 DOSE PACK PO SCH (09:20)
[2019-10-17] MEDS: FUROSEMIDE 20MG/2ML VIAL IVP SCH (09:20)
[2019-10-17] MEDS: LOSARTAN POTASSIUM 50 MG TABLET PO SCH ×2 (09:20→21:46)
[2019-10-17] MEDS: SODIUM HYPOCHLORITE 0.125% 473ML SOLUTION TOP SCH (09:20)
[2019-10-17] MEDS: HYDRALAZINE HCL 25MG TABLET PO SCH ×2 (09:20→21:46)
[2019-10-17] MEDS: ACETAMINOPHEN 325MG TABLET PO PRN (10:06)
[2019-10-17] MEDS: INSULIN GLARGINE UD 100 UNITS/ML SYR SUBCUT SCH ×2 (10:32→21:48)
[2019-10-17] MEDS ORDERED: MORPHINE SULFATE 2 MG/ML CPJ (NOT FOR IM USE) IV PRN (11:15)
[2019-10-17] MEDS ORDERED: LORAZEPAM 2MG/ML CPJ IV PRN (11:15)
[2019-10-17 13:10] LABS: BG BASE EXCESS 4.9 mmol/L (-2.0-2.0); BG CARBOXYHEMOGLOBIN 0.3 % (0.5-1.5); BG DEOXYHEMOGLOBIN 3.6 % (0.0-5.0); BG FRACTION INSPIRED OXYGEN 40; BG HCO3 ACT 29.4 mmol/L (22.0-26.0); BG METHEMOGLOBIN 0.3 % (0.0-1.5); BG OXYGEN SATURATION 96.4 % (92.0-98.5); BG OXYHEMOGLOBIN 95.8 % (94.0-97.0); BG PCO2 43.4 mmHg (35.0-45.0); BG PH 7.449 (7.350-7.450); BG PO2 85.5 mmHg (75.0-100.0); BG PRESSURE SUPPORT 12; BG SAMPLE SITE RIGHT RADIAL; BG TIDAL VOLUME(mL) 500 mL; BG TOTAL HEMOGLOBIN 8.5 g/dL (12.0-18.0); BG VENT MODE VENT - SIMV; BG VENT RATE 10 set
[2019-10-17] MEDS: SODIUM CHLORIDE 0.45% 1,000 ML IV SCH (22:04)
[2019-10-18] VITALS (96 sets, daily range): BP systolic 95–185; BP diastolic 45–87
[2019-10-18] MEDS: AZTREONAM 1G in DEXTROSE 5% WATER 50ML IV SCH ×3 (00:02→17:33)
[2019-10-18] MEDS: BLOOD SUGAR DIAGNOSTIC STRIP TEST SCH ×4 (00:02→17:33)
[2019-10-18] MEDS: IPRATROPIUM/ALBUTEROL 0.5-3(2.5)MG/3ML NEB HHN SCH ×6 (00:48→20:06)
[2019-10-18] MEDS: SODIUM CHLORIDE 0.45% 1,000 ML IV SCH ×2 (01:45→20:50)
[2019-10-18] MEDS: VANCOMYCIN 1 G PREMIX 200 ML IV SCH ×2 (05:54→17:41)
[2019-10-18] MEDS: INSULIN LISPRO 100 UNITS/ML SUBCUT SCH ×4 (05:54→17:41)
[2019-10-18 06:13] LABS: CHLORIDE 104 mEq/L (98-107)
[2019-10-18 06:22] LABS: BASOPHILS % 0.3 % (0.0-2.0); EOSINOPHILS % 0.2 % (0.0-5.0); HEMATOCRIT. 25.3 % (36.0-48.0); HEMOGLOBIN. 8.1 g/dL (12.0-16.0); LYMPHOCYTES % 7.3 % (20.0-50.0); MEAN PLATELET VOLUME 9.8 fl (7.4-10.4); MONOCYTES % 5.9 % (2.0-8.0); NEUTROPHILS % 86.3 % (40.0-76.0); PLATELET 136 x1000/uL (130-400); RED BLOOD CELL COUNT 2.88 mill/uL (4.2-5.4); RED CELL DISTRIBUTION WIDTH 17.6 % (11.6-14.6)
[2019-10-18] MEDS: LOSARTAN POTASSIUM 50 MG TABLET PO SCH ×2 (08:47→20:49)
[2019-10-18] MEDS: POLYETHYLENE GLYCOL 3350 (17GM) 1 DOSE PACK PO SCH (08:47)
[2019-10-18] MEDS: FUROSEMIDE 20MG/2ML VIAL IVP SCH (08:56)
[2019-10-18] MEDS: PANTOPRAZOLE SODIUM 40 MG/VIAL IV SCH (08:56)
[2019-10-18] MEDS: HYDRALAZINE HCL 25MG TABLET PO SCH ×2 (08:56→20:49)
[2019-10-18] MEDS: SODIUM HYPOCHLORITE 0.125% 473ML SOLUTION TOP SCH (08:58)
[2019-10-18] MEDS: INSULIN GLARGINE UD 100 UNITS/ML SYR SUBCUT SCH ×2 (09:06→21:15)
[2019-10-18 13:47] LABS: BG BASE EXCESS 10.9 mmol/L (-2.0-2.0); BG CARBOXYHEMOGLOBIN 0.3 % (0.5-1.5); BG FRACTION INSPIRED OXYGEN 40; BG HCO3 ACT 35.7 mmol/L (22.0-26.0); BG METHEMOGLOBIN 0.3 % (0.0-1.5); BG OXYHEMOGLOBIN 95.4 % (94.0-97.0); BG PH 7.472 (7.350-7.450); BG PO2 76.9 mmHg (75.0-100.0); BG SAMPLE SITE RIGHT RADIAL; BG TIDAL VOLUME(mL) 500 mL; BG VENT MODE VENT - A/C; BG VENT RATE 18 set
[2019-10-18] MEDS: ACETAMINOPHEN 325MG TABLET PO PRN (21:09)
[2019-10-19] VITALS (94 sets, daily range): BP systolic 89–189; BP diastolic 32–104
[2019-10-19] MEDS: AZTREONAM 1G in DEXTROSE 5% WATER 50ML IV SCH ×3 (00:08→17:05)
[2019-10-19] MEDS: IPRATROPIUM/ALBUTEROL 0.5-3(2.5)MG/3ML NEB HHN SCH ×6 (00:11→20:24)
[2019-10-19] MEDS: BLOOD SUGAR DIAGNOSTIC STRIP TEST SCH ×4 (00:22→17:05)
[2019-10-19] MEDS: ACETAMINOPHEN 325MG TABLET PO PRN (04:45)
[2019-10-19] MEDS: VANCOMYCIN 1 G PREMIX 200 ML IV SCH ×2 (05:47→17:04)
[2019-10-19] MEDS: INSULIN LISPRO 100 UNITS/ML SUBCUT SCH ×4 (05:47→17:53)
[2019-10-19 05:49] LABS: BASOPHILS % 0.1 % (0.0-2.0); CHLORIDE 105 mEq/L (98-107); EOSINOPHILS % 0.1 % (0.0-5.0); HEMATOCRIT. 25.1 % (36.0-48.0); LYMPHOCYTES % 11.3 % (20.0-50.0); MEAN CORPUSCULAR HEMOGLOBIN 27.9 pg (28.0-32.0); MEAN CORPUSCULAR VOLUME 87.9 fL (81.0-99.0); MEAN PLATELET VOLUME 9.3 fl (7.4-10.4); MONOCYTES % 7.7 % (2.0-8.0); NEUTROPHILS % 80.8 % (40.0-76.0); PLATELET 171 x1000/uL (130-400); RED BLOOD CELL COUNT 2.86 mill/uL (4.2-5.4); RED CELL DISTRIBUTION WIDTH 18.3 % (11.6-14.6)
[2019-10-19 07:52] LABS: BG BASE EXCESS 5.9 mmol/L (-2.0-2.0); BG CARBOXYHEMOGLOBIN 0.1 % (0.5-1.5); BG DEOXYHEMOGLOBIN 3.4 % (0.0-5.0); BG HCO3 ACT 29.7 mmol/L (22.0-26.0); BG METHEMOGLOBIN 0.3 % (0.0-1.5); BG OXYGEN SATURATION 96.6 % (92.0-98.5); BG OXYHEMOGLOBIN 96.2 % (94.0-97.0); BG PCO2 40.3 mmHg (35.0-45.0); BG PH 7.486 (7.350-7.450); BG SAMPLE SITE RIGHT RADIAL; BG TIDAL VOLUME(mL) 500 mL; BG VENT MODE VENT - A/C; BG VENT RATE 16 set
[2019-10-19] MEDS: LOSARTAN POTASSIUM 50 MG TABLET PO SCH ×2 (09:00→20:37)
[2019-10-19] MEDS: POLYETHYLENE GLYCOL 3350 (17GM) 1 DOSE PACK PO SCH (09:00)
[2019-10-19] MEDS: FUROSEMIDE 20MG/2ML VIAL IVP SCH (09:10)
[2019-10-19] MEDS: PANTOPRAZOLE SODIUM 40 MG/VIAL IV SCH (09:11)
[2019-10-19] MEDS: SODIUM HYPOCHLORITE 0.125% 473ML SOLUTION TOP SCH (09:11)
[2019-10-19] MEDS: HYDRALAZINE HCL 25MG TABLET PO SCH ×2 (09:11→20:36)
[2019-10-19] MEDS: INSULIN GLARGINE UD 100 UNITS/ML SYR SUBCUT SCH ×2 (10:00→22:08)
[2019-10-19] MEDS: SODIUM CHLORIDE 0.45% 1,000 ML IV SCH ×2 (17:05→19:14)
[2019-10-19] MEDS: CLONIDINE 0.1MG TABLET PO PRN (17:55)
[2019-10-20] VITALS (50 sets, daily range): BP systolic 98–166; BP diastolic 54–89
[2019-10-20] MEDS: IPRATROPIUM/ALBUTEROL 0.5-3(2.5)MG/3ML NEB HHN SCH ×6 (00:04→20:10)
[2019-10-20] MEDS: AZTREONAM 1G in DEXTROSE 5% WATER 50ML IV SCH ×3 (00:13→17:04)
[2019-10-20] MEDS: BLOOD SUGAR DIAGNOSTIC STRIP TEST SCH ×5 (00:18→23:25)
[2019-10-20] MEDS: INSULIN LISPRO 100 UNITS/ML SUBCUT SCH ×5 (00:20→23:30)
[2019-10-20] MEDS: VANCOMYCIN 1 G PREMIX 200 ML IV SCH ×2 (05:10→18:21)
[2019-10-20 05:20] LABS: CHLORIDE 103 mEq/L (98-107)
[2019-10-20 05:29] LABS: PHOSPHORUS 3.2 mg/dL (2.5-4.9)
[2019-10-20 05:31] LABS: VANCOMYCIN TROUGH 17.3 ug/mL (5.0-10.0)
[2019-10-20 05:57] LABS: BASOPHILS % 0.3 % (0.0-2.0); EOSINOPHILS % 0.3 % (0.0-5.0); LYMPHOCYTES % 12.2 % (20.0-50.0); MEAN CORPUSCULAR HEMOGLOBIN 27.8 pg (28.0-32.0); MEAN CORPUSCULAR VOLUME 86.5 fL (81.0-99.0); MONOCYTES % 6.3 % (2.0-8.0); NEUTROPHILS % 80.9 % (40.0-76.0); PLATELET 159 x1000/uL (130-400); RED BLOOD CELL COUNT 2.89 mill/uL (4.2-5.4); RED CELL DISTRIBUTION WIDTH 18.2 % (11.6-14.6)
[2019-10-20] MEDS: PANTOPRAZOLE SODIUM 40 MG/VIAL IV SCH (09:37)
[2019-10-20] MEDS: POLYETHYLENE GLYCOL 3350 (17GM) 1 DOSE PACK PO SCH (09:38)
[2019-10-20] MEDS: INSULIN GLARGINE UD 100 UNITS/ML SYR SUBCUT SCH ×2 (09:38→20:57)
[2019-10-20] MEDS: HYDRALAZINE HCL 25MG TABLET PO SCH ×2 (09:38→20:56)
[2019-10-20] MEDS: LOSARTAN POTASSIUM 50 MG TABLET PO SCH ×2 (09:39→20:56)
[2019-10-20] MEDS: FUROSEMIDE 20MG/2ML VIAL IVP SCH (09:39)
[2019-10-20] MEDS: SODIUM HYPOCHLORITE 0.125% 473ML SOLUTION TOP SCH (09:40)
[2019-10-21] VITALS (52 sets, daily range): BP systolic 95–228; BP diastolic 49–133
[2019-10-21] MEDS: AZTREONAM 1G in DEXTROSE 5% WATER 50ML IV SCH ×3 (00:43→18:36)
[2019-10-21] MEDS: IPRATROPIUM/ALBUTEROL 0.5-3(2.5)MG/3ML NEB HHN SCH ×5 (00:47→20:44)
[2019-10-21 06:04] LABS: BASOPHILS % 0.2 % (0.0-2.0); EOSINOPHILS % 0.8 % (0.0-5.0); HEMATOCRIT. 24.5 % (36.0-48.0); HEMOGLOBIN. 7.8 g/dL (12.0-16.0); LYMPHOCYTES % 11.2 % (20.0-50.0); MEAN CORPUSCULAR HEMOGLOBIN 28.2 pg (28.0-32.0); MEAN CORPUSCULAR VOLUME 88.1 fL (81.0-99.0); MEAN PLATELET VOLUME 8.8 fl (7.4-10.4); MONOCYTES % 5.2 % (2.0-8.0); NEUTROPHILS % 82.6 % (40.0-76.0); PLATELET 169 x1000/uL (130-400); RED BLOOD CELL COUNT 2.78 mill/uL (4.2-5.4); RED CELL DISTRIBUTION WIDTH 18.2 % (11.6-14.6)
[2019-10-21 06:05] LABS: CHLORIDE 103 mEq/L (98-107)
[2019-10-21] MEDS: BLOOD SUGAR DIAGNOSTIC STRIP TEST SCH ×3 (06:16→18:37)
[2019-10-21] MEDS: INSULIN LISPRO 100 UNITS/ML SUBCUT SCH ×3 (06:21→18:00)
[2019-10-21] MEDS: VANCOMYCIN 1 G PREMIX 200 ML IV SCH ×2 (06:22→18:36)
[2019-10-21] MEDS: HYDRALAZINE HCL 25MG TABLET PO SCH (09:00)
[2019-10-21] MEDS: LOSARTAN POTASSIUM 50 MG TABLET PO SCH (09:00)
[2019-10-21] MEDS: FUROSEMIDE 20MG/2ML VIAL IVP SCH (09:16)
[2019-10-21] MEDS: PANTOPRAZOLE SODIUM 40 MG/VIAL IV SCH (09:16)
[2019-10-21] MEDS: POLYETHYLENE GLYCOL 3350 (17GM) 1 DOSE PACK PO SCH (09:18)
[2019-10-21] MEDS: SODIUM HYPOCHLORITE 0.125% 473ML SOLUTION TOP SCH (09:19)
[2019-10-21] MEDS: INSULIN GLARGINE UD 100 UNITS/ML SYR SUBCUT SCH ×2 (09:20→21:42)
[2019-10-22] VITALS (54 sets, daily range): BP systolic 92–169; BP diastolic 54–92
[2019-10-22] MEDS: AZTREONAM 1G in DEXTROSE 5% WATER 50ML IV SCH ×3 (00:20→17:05)
[2019-10-22] MEDS: IPRATROPIUM/ALBUTEROL 0.5-3(2.5)MG/3ML NEB HHN SCH ×6 (00:48→20:23)
[2019-10-22 05:45] LABS: BASOPHILS % 0.4 % (0.0-2.0); EOSINOPHILS % 0.8 % (0.0-5.0); HEMATOCRIT. 23.5 % (36.0-48.0); HEMOGLOBIN. 7.7 g/dL (12.0-16.0); LYMPHOCYTES % 11.8 % (20.0-50.0); MEAN CORPUSCULAR HEMOGLOBIN 28.5 pg (28.0-32.0); MEAN CORPUSCULAR VOLUME 87.1 fL (81.0-99.0); MEAN PLATELET VOLUME 8.8 fl (7.4-10.4); MONOCYTES % 5.5 % (2.0-8.0); NEUTROPHILS % 81.5 % (40.0-76.0); PLATELET 180 x1000/uL (130-400); RED CELL DISTRIBUTION WIDTH 18.2 % (11.6-14.6)
[2019-10-22 05:50] LABS: CHLORIDE 102 mEq/L (98-107)
[2019-10-22] MEDS: INSULIN LISPRO 100 UNITS/ML SUBCUT SCH ×4 (05:58→18:00)
[2019-10-22] MEDS: BLOOD SUGAR DIAGNOSTIC STRIP TEST SCH ×4 (05:58→18:40)
[2019-10-22] MEDS: VANCOMYCIN 1 G PREMIX 200 ML IV SCH ×2 (06:06→18:17)
[2019-10-22 07:14] LABS: PARTIAL THROMBOPLASTIN TIME 27.5 sec (23.4-31.0); PROTHROMBIN TIME 10.6 sec (9.6-11.0)
[2019-10-22] MEDS: FUROSEMIDE 20MG/2ML VIAL IVP SCH (09:26)
[2019-10-22] MEDS: POLYETHYLENE GLYCOL 3350 (17GM) 1 DOSE PACK PO SCH (09:26)
[2019-10-22] MEDS: PANTOPRAZOLE SODIUM 40 MG/VIAL IV SCH (09:26)
[2019-10-22] MEDS: SODIUM HYPOCHLORITE 0.125% 473ML SOLUTION TOP SCH (09:26)
[2019-10-22] MEDS: INSULIN GLARGINE UD 100 UNITS/ML SYR SUBCUT SCH ×2 (09:28→22:00)
[2019-10-23] VITALS (50 sets, daily range): BP systolic 91–165; BP diastolic 52–88
[2019-10-23] MEDS: IPRATROPIUM/ALBUTEROL 0.5-3(2.5)MG/3ML NEB HHN SCH ×4 (00:10→12:00)
[2019-10-23] MEDS: BLOOD SUGAR DIAGNOSTIC STRIP TEST SCH ×4 (00:18→17:27)
[2019-10-23] MEDS: AZTREONAM 1G in DEXTROSE 5% WATER 50ML IV SCH ×3 (00:55→17:33)
[2019-10-23] MEDS: ACETAMINOPHEN 325MG TABLET PO PRN ×2 (04:34→13:12)
[2019-10-23] MEDS: ONDANSETRON HCL 4MG/2ML INJ IV PRN (04:34)
[2019-10-23 05:24] LABS: BASOPHILS % 0.3 % (0.0-2.0); EOSINOPHILS % 0.5 % (0.0-5.0); HEMATOCRIT. 23.8 % (36.0-48.0); HEMOGLOBIN. 7.8 g/dL (12.0-16.0); LYMPHOCYTES % 8.1 % (20.0-50.0); MEAN CORPUSCULAR HEMOGLOBIN 28.5 pg (28.0-32.0); MEAN CORPUSCULAR VOLUME 87.2 fL (81.0-99.0); MEAN PLATELET VOLUME 8.3 fl (7.4-10.4); MONOCYTES % 5.9 % (2.0-8.0); NEUTROPHILS % 85.2 % (40.0-76.0); PLATELET 208 x1000/uL (130-400); RED BLOOD CELL COUNT 2.73 mill/uL (4.2-5.4); RED CELL DISTRIBUTION WIDTH 18.3 % (11.6-14.6)
[2019-10-23 05:34] LABS: CHLORIDE 101 mEq/L (98-107)
[2019-10-23] MEDS: INSULIN LISPRO 100 UNITS/ML SUBCUT SCH ×4 (06:00→17:27)
[2019-10-23] MEDS: VANCOMYCIN 1 G PREMIX 200 ML IV SCH ×2 (06:07→17:33)
[2019-10-23] MEDS: PANTOPRAZOLE SODIUM 40 MG/VIAL IV SCH (09:06)
[2019-10-23] MEDS: FUROSEMIDE 20MG/2ML VIAL IVP SCH (09:06)
[2019-10-23] MEDS: POLYETHYLENE GLYCOL 3350 (17GM) 1 DOSE PACK PO SCH (13:11)
[2019-10-23] MEDS: ASCORBIC ACID 500 MG TABLET PO SCH (13:11)
[2019-10-23] MEDS: ZINC SULFATE 220 MG ( 50 ) CAPSULE PO SCH (13:11)
[2019-10-23] MEDS: SODIUM HYPOCHLORITE 0.125% 473ML SOLUTION TOP SCH (13:15)
[2019-10-23] MEDS: IPRATROPIUM BROMIDE (0.02%) 0.5MG/2.5ML NEB HHN SCH ×2 (16:08→20:19)
[2019-10-24] VITALS (43 sets, daily range): BP systolic 96–194; BP diastolic 54–100
[2019-10-24] MEDS: BLOOD SUGAR DIAGNOSTIC STRIP TEST SCH ×4 (00:01→17:16)
[2019-10-24] MEDS: ACETYLCYSTEINE 100MG/ML 10% VIAL 4ML INH SCH ×4 (00:22→20:26)
[2019-10-24] MEDS: AZTREONAM 1G in DEXTROSE 5% WATER 50ML IV SCH ×3 (01:16→17:16)
[2019-10-24] MEDS: IPRATROPIUM BROMIDE (0.02%) 0.5MG/2.5ML NEB HHN SCH ×2 (02:41→08:32)
[2019-10-24 05:15] LABS: CHLORIDE 100 mEq/L (98-107)
[2019-10-24] MEDS: INSULIN LISPRO 100 UNITS/ML SUBCUT SCH ×5 (06:00→22:19)
[2019-10-24 06:15] LABS: HEMATOCRIT. 23.5 % (36.0-48.0); HEMOGLOBIN. 7.5 g/dL (12.0-16.0); LYMPHOCYTES % 10.2 % (20.0-50.0); MEAN CORPUSCULAR HEMOGLOBIN 28.2 pg (28.0-32.0); MEAN CORPUSCULAR VOLUME 88.2 fL (81.0-99.0); MEAN PLATELET VOLUME 8.4 fl (7.4-10.4); NEUTROPHILS % 83.4 % (40.0-76.0); PLATELET 223 x1000/uL (130-400); RED BLOOD CELL COUNT 2.67 mill/uL (4.2-5.4); RED CELL DISTRIBUTION WIDTH 18.6 % (11.6-14.6)
[2019-10-24 06:16] LABS: BASOPHILS % 0.2 % (0.0-2.0); EOSINOPHILS % 0.7 % (0.0-5.0); MONOCYTES % 5.5 % (2.0-8.0)
[2019-10-24] MEDS: VANCOMYCIN 1 G PREMIX 200 ML IV SCH (06:53)
[2019-10-24] MEDS: POLYETHYLENE GLYCOL 3350 (17GM) 1 DOSE PACK PO SCH (08:51)
[2019-10-24] MEDS: FUROSEMIDE 20MG/2ML VIAL IVP SCH (08:51)
[2019-10-24] MEDS: PANTOPRAZOLE SODIUM 40 MG/VIAL IV SCH (08:51)
[2019-10-24] MEDS: ASCORBIC ACID 500 MG TABLET PO SCH (08:51)
[2019-10-24] MEDS: ZINC SULFATE 220 MG ( 50 ) CAPSULE PO SCH (08:51)
[2019-10-24] MEDS: SODIUM HYPOCHLORITE 0.125% 473ML SOLUTION TOP SCH (08:52)
[2019-10-24 09:43] LABS: BG BASE EXCESS 8.1 mmol/L (-2.0-2.0); BG CARBOXYHEMOGLOBIN 0.6 % (0.5-1.5); BG DEOXYHEMOGLOBIN 9.1 % (0.0-5.0); BG FRACTION INSPIRED OXYGEN 50; BG HCO3 ACT 33.2 mmol/L (22.0-26.0); BG METHEMOGLOBIN 0.3 % (0.0-1.5); BG OXYGEN SATURATION 90.8 % (92.0-98.5); BG PO2 60.2 mmHg (75.0-100.0); BG SAMPLE SITE RIGHT RADIAL; BG TIDAL VOLUME(mL) 500 mL; BG VENT MODE VENT - A/C; BG VENT RATE 16 set
[2019-10-24] MEDS ORDERED: MORPHINE SULFATE 2 MG/ML CPJ (NOT FOR IM USE) IV PRN (09:45)
[2019-10-24] MEDS: INSULIN GLARGINE UD 100 UNITS/ML SYR SUBCUT SCH ×2 (09:53→22:30)
[2019-10-24] MEDS: IPRATROPIUM/ALBUTEROL 0.5-3(2.5)MG/3ML NEB HHN SCH ×3 (12:14→20:22)
[2019-10-24] MEDS: SODIUM CHLORIDE 3% FOR INH 4ML UD NEB INH SCH ×3 (12:15→20:20)
[2019-10-24] MEDS: LABETALOL 5MG/ML SYR 20 MG/4 ML SYRINGE IV PRN (17:53)
[2019-10-24 23:27] LABS: BG CARBOXYHEMOGLOBIN 0.3 % (0.5-1.5); BG DEOXYHEMOGLOBIN 5.1 % (0.0-5.0); BG FRACTION INSPIRED OXYGEN 50; BG HCO3 ACT 31.6 mmol/L (22.0-26.0); BG OXYGEN SATURATION 94.9 % (92.0-98.5); BG OXYHEMOGLOBIN 94.6 % (94.0-97.0); BG PCO2 45.6 mmHg (35.0-45.0); BG PH 7.458 (7.350-7.450); BG PO2 75.7 mmHg (75.0-100.0); BG SAMPLE SITE RIGHT RADIAL; BG TIDAL VOLUME(mL) 500 mL; BG TOTAL HEMOGLOBIN 7.8 g/dL (12.0-18.0); BG VENT MODE VENT - A/C; BG VENT RATE 16 set
[2019-10-25] VITALS (50 sets, daily range): BP systolic 108–205; BP diastolic 49–95
[2019-10-25] MEDS: IPRATROPIUM/ALBUTEROL 0.5-3(2.5)MG/3ML NEB HHN SCH ×6 (00:29→22:42)
[2019-10-25] MEDS: BLOOD SUGAR DIAGNOSTIC STRIP TEST SCH ×5 (00:38→23:09)
[2019-10-25] MEDS: AZTREONAM 1G in DEXTROSE 5% WATER 50ML IV SCH ×3 (00:56→17:00)
[2019-10-25] MEDS: SODIUM CHLORIDE 3% FOR INH 4ML UD NEB INH SCH (03:49)
[2019-10-25] MEDS: INSULIN LISPRO 100 UNITS/ML SUBCUT SCH ×4 (06:00→23:07)
[2019-10-25 06:21] LABS: CHLORIDE 100 mEq/L (98-107)
[2019-10-25 06:26] LABS: BASOPHILS % 0.3 % (0.0-2.0); EOSINOPHILS % 0.5 % (0.0-5.0); HEMATOCRIT. 23.2 % (36.0-48.0); HEMOGLOBIN. 7.4 g/dL (12.0-16.0); LYMPHOCYTES % 10.2 % (20.0-50.0); MEAN CORPUSCULAR HEMOGLOBIN 27.7 pg (28.0-32.0); MEAN CORPUSCULAR VOLUME 87.5 fL (81.0-99.0); MEAN PLATELET VOLUME 8.6 fl (7.4-10.4); MONOCYTES % 9.6 % (2.0-8.0); NEUTROPHILS % 79.4 % (40.0-76.0); PLATELET 289 x1000/uL (130-400); RED BLOOD CELL COUNT 2.66 mill/uL (4.2-5.4); RED CELL DISTRIBUTION WIDTH 18.6 % (11.6-14.6)
[2019-10-25] MEDS: VANCOMYCIN 1250MG in DEXTROSE 5% WATER 250ML IV SCH ×2 (06:39→20:52)
[2019-10-25 08:22] LABS: BG BASE EXCESS 8.7 mmol/L (-2.0-2.0); BG CARBOXYHEMOGLOBIN 0.1 % (0.5-1.5); BG DEOXYHEMOGLOBIN 3.1 % (0.0-5.0); BG FRACTION INSPIRED OXYGEN 50; BG HCO3 ACT 33.9 mmol/L (22.0-26.0); BG METHEMOGLOBIN 0.3 % (0.0-1.5); BG OXYGEN SATURATION 96.9 % (92.0-98.5); BG OXYHEMOGLOBIN 96.5 % (94.0-97.0); BG PCO2 51.7 mmHg (35.0-45.0); BG PH 7.435 (7.350-7.450); BG PO2 88.1 mmHg (75.0-100.0); BG SAMPLE SITE RIGHT RADIAL; BG TIDAL VOLUME(mL) 500 mL; BG VENT MODE VENT - A/C; BG VENT RATE 16 set
[2019-10-25] MEDS: POLYETHYLENE GLYCOL 3350 (17GM) 1 DOSE PACK PO SCH (09:00)
[2019-10-25] MEDS: PANTOPRAZOLE SODIUM 40 MG/VIAL IV SCH (09:11)
[2019-10-25] MEDS: FUROSEMIDE 20MG/2ML VIAL IVP SCH (09:12)
[2019-10-25] MEDS: ASCORBIC ACID 500 MG TABLET PO SCH (09:12)
[2019-10-25] MEDS: SODIUM HYPOCHLORITE 0.125% 473ML SOLUTION TOP SCH (09:12)
[2019-10-25] MEDS: ZINC SULFATE 220 MG ( 50 ) CAPSULE PO SCH (09:12)
[2019-10-25] MEDS: ACETYLCYSTEINE 100MG/ML 10% VIAL 4ML INH SCH ×2 (09:20→16:40)
[2019-10-25] MEDS: INSULIN GLARGINE UD 100 UNITS/ML SYR SUBCUT SCH ×2 (10:00→23:09)
[2019-10-25] MEDS: ACETAMINOPHEN 325MG TABLET PO PRN ×2 (12:20→18:11)
[2019-10-25] MEDS: LABETALOL 5MG/ML SYR 20 MG/4 ML SYRINGE IV PRN (21:38)
[2019-10-26] VITALS (54 sets, daily range): BP systolic 104–180; BP diastolic 61–96
[2019-10-26] MEDS: AZTREONAM 1G in DEXTROSE 5% WATER 50ML IV SCH ×3 (00:07→17:03)
[2019-10-26] MEDS: ACETYLCYSTEINE 100MG/ML 10% VIAL 4ML INH SCH ×3 (00:52→15:49)
[2019-10-26] MEDS: IPRATROPIUM/ALBUTEROL 0.5-3(2.5)MG/3ML NEB HHN SCH ×6 (00:52→20:48)
[2019-10-26] MEDS: CLONIDINE 0.1MG TABLET PO PRN ×2 (01:43→11:06)
[2019-10-26] MEDS: BLOOD SUGAR DIAGNOSTIC STRIP TEST SCH ×4 (05:19→23:01)
[2019-10-26] MEDS: INSULIN LISPRO 100 UNITS/ML SUBCUT SCH ×4 (05:20→23:01)
[2019-10-26 05:35] LABS: BASOPHILS % 0.3 % (0.0-2.0); EOSINOPHILS % 0.6 % (0.0-5.0); LYMPHOCYTES % 21.6 % (20.0-50.0); MEAN CORPUSCULAR HEMOGLOBIN 28.2 pg (28.0-32.0); MEAN CORPUSCULAR VOLUME 86.5 fL (81.0-99.0); MEAN PLATELET VOLUME 8.4 fl (7.4-10.4); MONOCYTES % 13.5 % (2.0-8.0); PLATELET 296 x1000/uL (130-400); RED BLOOD CELL COUNT 2.35 mill/uL (4.2-5.4); RED CELL DISTRIBUTION WIDTH 17.9 % (11.6-14.6)
[2019-10-26 05:44] LABS: CHLORIDE 100 mEq/L (98-107)
[2019-10-26 05:45] LABS: HEMOGLOBIN. 6.6 g/dL (12.0-16.0)
[2019-10-26 05:46] LABS: HEMATOCRIT. 20.3 % (36.0-48.0)
[2019-10-26 05:50] LABS: PHOSPHORUS 2.8 mg/dL (2.5-4.9)
[2019-10-26] MEDS: FUROSEMIDE 20MG/2ML VIAL IVP SCH (08:42)
[2019-10-26] MEDS: ZINC SULFATE 220 MG ( 50 ) CAPSULE PO SCH (08:42)
[2019-10-26] MEDS: POLYETHYLENE GLYCOL 3350 (17GM) 1 DOSE PACK PO SCH (08:42)
[2019-10-26] MEDS: PANTOPRAZOLE SODIUM 40 MG/VIAL IV SCH (08:42)
[2019-10-26] MEDS: ASCORBIC ACID 500 MG TABLET PO SCH (08:42)
[2019-10-26] MEDS: SODIUM HYPOCHLORITE 0.125% 473ML SOLUTION TOP SCH (08:43)
[2019-10-26] MEDS: LOSARTAN POTASSIUM 50 MG TABLET PO SCH ×2 (09:08→20:42)
[2019-10-26 11:05] LABS: TOTAL IRON BINDING CAPACITY 127 ug/dL (250-450)
[2019-10-26 11:21] LABS: FOLIC ACID (FOLATE) SERUM 8.7 ng/mL (>5.38)
[2019-10-26] MEDS: INSULIN GLARGINE UD 100 UNITS/ML SYR SUBCUT SCH ×2 (11:30→23:03)
[2019-10-26] MEDS: ACETAMINOPHEN 325MG TABLET PO PRN (11:59)
[2019-10-26] MEDS: VANCOMYCIN 1250MG in DEXTROSE 5% WATER 250ML IV SCH (14:00)
[2019-10-26 15:53] LABS: HEMATOCRIT. 25.2 % (36.0-48.0); HEMOGLOBIN. 8.2 g/dL (12.0-16.0); MEAN CORPUSCULAR HEMOGLOBIN 28.2 pg (28.0-32.0); MEAN CORPUSCULAR VOLUME 86.9 fL (81.0-99.0); MEAN PLATELET VOLUME 8.6 fl (7.4-10.4); PLATELET 329 x1000/uL (130-400); RED CELL DISTRIBUTION WIDTH 17.7 % (11.6-14.6)
[2019-10-26 16:22] LABS: BASOPHILS % 0.5 % (0.0-2.0); EOSINOPHILS % 0.9 % (0.0-5.0); LYMPHOCYTES % 17.1 % (20.0-50.0); MONOCYTES % 13.5 % (2.0-8.0)
[2019-10-26 16:25] LABS: INR 1.1; PROTHROMBIN TIME 11.3 sec (9.6-11.0)
[2019-10-27] VITALS (51 sets, daily range): BP systolic 107–196; BP diastolic 54–129
[2019-10-27] MEDS: IPRATROPIUM/ALBUTEROL 0.5-3(2.5)MG/3ML NEB HHN SCH ×7 (00:55→20:27)
[2019-10-27] MEDS: ACETYLCYSTEINE 100MG/ML 10% VIAL 4ML INH SCH ×3 (00:55→15:30)
[2019-10-27] MEDS: AZTREONAM 1G in DEXTROSE 5% WATER 50ML IV SCH ×3 (01:29→17:02)
[2019-10-27 05:30] LABS: HEMATOCRIT. 25.4 % (36.0-48.0); HEMOGLOBIN. 8.2 g/dL (12.0-16.0); MEAN CORPUSCULAR HEMOGLOBIN 28.5 pg (28.0-32.0); MEAN CORPUSCULAR VOLUME 87.8 fL (81.0-99.0); MEAN PLATELET VOLUME 8.4 fl (7.4-10.4); PLATELET 355 x1000/uL (130-400); RED BLOOD CELL COUNT 2.89 mill/uL (4.2-5.4); RED CELL DISTRIBUTION WIDTH 17.4 % (11.6-14.6)
[2019-10-27 05:48] LABS: CHLORIDE 102 mEq/L (98-107)
[2019-10-27] MEDS: CLONIDINE 0.1MG TABLET PO PRN ×2 (06:37→18:36)
[2019-10-27] MEDS: BLOOD SUGAR DIAGNOSTIC STRIP TEST SCH ×3 (07:26→17:58)
[2019-10-27] MEDS: INSULIN LISPRO 100 UNITS/ML SUBCUT SCH ×3 (07:26→17:58)
[2019-10-27] MEDS: VANCOMYCIN 1250MG in DEXTROSE 5% WATER 250ML IV SCH (07:59)
[2019-10-27] MEDS: PANTOPRAZOLE SODIUM 40 MG/VIAL IV SCH (08:42)
[2019-10-27] MEDS: ASCORBIC ACID 500 MG TABLET PO SCH (08:43)
[2019-10-27] MEDS: FUROSEMIDE 20MG/2ML VIAL IVP SCH (08:43)
[2019-10-27] MEDS: POLYETHYLENE GLYCOL 3350 (17GM) 1 DOSE PACK PO SCH (08:43)
[2019-10-27] MEDS: ZINC SULFATE 220 MG ( 50 ) CAPSULE PO SCH (08:43)
[2019-10-27] MEDS: LOSARTAN POTASSIUM 50 MG TABLET PO SCH ×2 (08:43→20:14)
[2019-10-27 09:00] LABS: BG BASE EXCESS 12.8 mmol/L (-2.0-2.0); BG CARBOXYHEMOGLOBIN 0.3 % (0.5-1.5); BG DEOXYHEMOGLOBIN 2.1 % (0.0-5.0); BG FRACTION INSPIRED OXYGEN 45; BG HCO3 ACT 38.6 mmol/L (22.0-26.0); BG METHEMOGLOBIN 0.4 % (0.0-1.5); BG OXYGEN SATURATION 97.9 % (92.0-98.5); BG OXYHEMOGLOBIN 97.2 % (94.0-97.0); BG PCO2 58.7 mmHg (35.0-45.0); BG PH 7.436 (7.350-7.450); BG PO2 103.2 mmHg (75.0-100.0); BG SAMPLE SITE RIGHT RADIAL; BG TIDAL VOLUME(mL) 500 mL; BG TOTAL HEMOGLOBIN 8.4 g/dL (12.0-18.0); BG VENT MODE VENT - A/C; BG VENT RATE 16 set
[2019-10-27] MEDS: SODIUM HYPOCHLORITE 0.125% 473ML SOLUTION TOP SCH (09:01)
[2019-10-27] MEDS: INSULIN GLARGINE UD 100 UNITS/ML SYR SUBCUT SCH ×2 (10:34→21:19)
[2019-10-27] MEDS: LABETALOL 5MG/ML SYR 20 MG/4 ML SYRINGE IV PRN (10:35)
[2019-10-27] MEDS: FUROSEMIDE 20MG TABLET PO SCH (11:10)
[2019-10-27 11:40] LABS: PLATELET ESTIMATE NORMAL
[2019-10-27] MEDS: ACETAMINOPHEN 325MG TABLET PO PRN (20:14)
[2019-10-28] VITALS (48 sets, daily range): BP systolic 116–176; BP diastolic 60–98
[2019-10-28] MEDS: ACETYLCYSTEINE 100MG/ML 10% VIAL 4ML INH SCH ×3 (00:01→16:30)
[2019-10-28] MEDS: IPRATROPIUM/ALBUTEROL 0.5-3(2.5)MG/3ML NEB HHN SCH ×6 (00:01→20:23)
[2019-10-28] MEDS: VANCOMYCIN 1250MG in DEXTROSE 5% WATER 250ML IV SCH ×2 (00:05→18:16)
[2019-10-28] MEDS: BLOOD SUGAR DIAGNOSTIC STRIP TEST SCH ×4 (00:06→17:50)
[2019-10-28] MEDS: AZTREONAM 1G in DEXTROSE 5% WATER 50ML IV SCH ×3 (00:06→17:53)
[2019-10-28] MEDS: CLONIDINE 0.2MG TABLET PO PRN ×2 (00:37→18:16)
[2019-10-28] MEDS: ACETAMINOPHEN 325MG TABLET PO PRN (03:16)
[2019-10-28 05:30] LABS: CHLORIDE 99 mEq/L (98-107)
[2019-10-28] MEDS: INSULIN LISPRO 100 UNITS/ML SUBCUT SCH ×4 (05:36→17:54)
[2019-10-28 05:37] LABS: HEMATOCRIT. 27.1 % (36.0-48.0); HEMOGLOBIN. 8.7 g/dL (12.0-16.0); MEAN CORPUSCULAR HEMOGLOBIN 27.7 pg (28.0-32.0); MEAN CORPUSCULAR VOLUME 86.9 fL (81.0-99.0); MEAN PLATELET VOLUME 8.6 fl (7.4-10.4); PLATELET 445 x1000/uL (130-400); RED BLOOD CELL COUNT 3.12 mill/uL (4.2-5.4); RED CELL DISTRIBUTION WIDTH 17.3 % (11.6-14.6)
[2019-10-28] MEDS: ASCORBIC ACID 500 MG TABLET PO SCH (08:08)
[2019-10-28] MEDS: PANTOPRAZOLE SODIUM 40 MG/VIAL IV SCH (08:08)
[2019-10-28] MEDS: LOSARTAN POTASSIUM 50 MG TABLET PO SCH ×2 (08:08→22:01)
[2019-10-28] MEDS: FUROSEMIDE 20MG TABLET PO SCH (08:08)
[2019-10-28] MEDS: ZINC SULFATE 220 MG ( 50 ) CAPSULE PO SCH (08:08)
[2019-10-28] MEDS: POLYETHYLENE GLYCOL 3350 (17GM) 1 DOSE PACK PO SCH (08:08)
[2019-10-28] MEDS: SODIUM HYPOCHLORITE 0.125% 473ML SOLUTION TOP SCH (08:09)
[2019-10-28] MEDS: HYDRALAZINE HCL 25MG TABLET PO SCH (08:09)
[2019-10-28] MEDS: INSULIN GLARGINE UD 100 UNITS/ML SYR SUBCUT SCH ×2 (09:35→22:00)
[2019-10-28 14:23] LABS: NUCLEATED RED BLOOD CELLS 2 /100 WBC
[2019-10-28 14:24] LABS: PLATELET ESTIMATE SLIGHTLY INCREASED
[2019-10-29] VITALS (57 sets, daily range): BP systolic 109–179; BP diastolic 59–102
[2019-10-29] MEDS: BLOOD SUGAR DIAGNOSTIC STRIP TEST SCH ×2 (00:16→06:13)
[2019-10-29] MEDS: AZTREONAM 1G in DEXTROSE 5% WATER 50ML IV SCH ×3 (01:27→16:44)
[2019-10-29] MEDS: IPRATROPIUM/ALBUTEROL 0.5-3(2.5)MG/3ML NEB HHN SCH ×6 (04:40→20:14)
[2019-10-29 05:16] LABS: HEMATOCRIT. 27.2 % (36.0-48.0); HEMOGLOBIN. 8.8 g/dL (12.0-16.0); MEAN CORPUSCULAR HEMOGLOBIN 27.8 pg (28.0-32.0); MEAN CORPUSCULAR VOLUME 86.2 fL (81.0-99.0); MEAN PLATELET VOLUME 8.4 fl (7.4-10.4); PLATELET 546 x1000/uL (130-400); RED BLOOD CELL COUNT 3.16 mill/uL (4.2-5.4); RED CELL DISTRIBUTION WIDTH 17.4 % (11.6-14.6)
[2019-10-29 05:22] LABS: CHLORIDE 100 mEq/L (98-107)
[2019-10-29 05:27] LABS: INR 1.1; PARTIAL THROMBOPLASTIN TIME 25.1 sec (23.4-31.0); PROTHROMBIN TIME 11.4 sec (9.6-11.0)
[2019-10-29] MEDS: ACETYLCYSTEINE 100MG/ML 10% VIAL 4ML INH SCH ×2 (05:52→09:29)
[2019-10-29] MEDS: INSULIN LISPRO 100 UNITS/ML SUBCUT SCH ×4 (06:00→17:50)
[2019-10-29] MEDS: FUROSEMIDE 20MG TABLET PO SCH (08:57)
[2019-10-29] MEDS: LOSARTAN POTASSIUM 50 MG TABLET PO SCH ×2 (08:57→21:33)
[2019-10-29] MEDS: POLYETHYLENE GLYCOL 3350 (17GM) 1 DOSE PACK PO SCH (08:57)
[2019-10-29] MEDS: ASCORBIC ACID 500 MG TABLET PO SCH (08:57)
[2019-10-29] MEDS: ZINC SULFATE 220 MG ( 50 ) CAPSULE PO SCH (08:57)
[2019-10-29] MEDS: PANTOPRAZOLE SODIUM 40 MG/VIAL IV SCH (09:05)
[2019-10-29] MEDS: SODIUM HYPOCHLORITE 0.125% 473ML SOLUTION TOP SCH (09:07)
[2019-10-29] MEDS: INSULIN GLARGINE UD 100 UNITS/ML SYR SUBCUT SCH ×2 (09:30→23:09)
[2019-10-29 11:41] LABS: ATYPICAL LYMPHOCYTES 2; NUCLEATED RED BLOOD CELLS 2 /100 WBC; PLATELET ESTIMATE INCREASED
[2019-10-29] MEDS ORDERED: MIDAZOLAM HCL 5 MG/5 ML VIAL IV PRN (11:49)
[2019-10-29] MEDS ORDERED: MIDAZOLAM HCL 5 MG/5 ML VIAL ONE ×2 (11:49→11:50)
[2019-10-29] MEDS ORDERED: FENTANYL CITRATE/PF 50MCG/ML 2ML VIAL IV PRN (11:50)
[2019-10-29] MEDS ORDERED: FENTANYL CITRATE/PF 50MCG/ML 2ML VIAL ONE (11:50)
[2019-10-29] MEDS ORDERED: MIDAZOLAM HCL 2 MG/2 ML VIAL ONE (14:21)
[2019-10-29] MEDS ORDERED: VECURONIUM BROMIDE 10 MG/VIAL IV ONE (14:25)
[2019-10-29] MEDS ORDERED: BUPIVACAINE HCL/PF 0.5% (5MG/ML) 10ML ONE (14:37)
[2019-10-29] MEDS: CLONIDINE 0.2MG TABLET PO PRN (17:24)
[2019-10-29] MEDS: VANCOMYCIN 1250MG in DEXTROSE 5% WATER 250ML IV SCH (17:24)
[2019-10-30] VITALS (56 sets, daily range): BP systolic 92–195; BP diastolic 52–111
[2019-10-30] MEDS: IPRATROPIUM/ALBUTEROL 0.5-3(2.5)MG/3ML NEB HHN SCH ×5 (00:09→20:45)
[2019-10-30] MEDS: AZTREONAM 1G in DEXTROSE 5% WATER 50ML IV SCH ×3 (01:04→17:27)
[2019-10-30 06:05] LABS: CHLORIDE 101 mEq/L (98-107)
[2019-10-30 07:47] LABS: MEAN PLATELET VOLUME 8.5 fl (7.4-10.4); PLATELET 550 x1000/uL (130-400); RED BLOOD CELL COUNT 3.22 mill/uL (4.2-5.4); RED CELL DISTRIBUTION WIDTH 17.7 % (11.6-14.6)
[2019-10-30] MEDS: ZINC SULFATE 220 MG ( 50 ) CAPSULE PO SCH (08:30)
[2019-10-30] MEDS: PANTOPRAZOLE SODIUM 40 MG/VIAL IV SCH (08:30)
[2019-10-30] MEDS: POLYETHYLENE GLYCOL 3350 (17GM) 1 DOSE PACK PO SCH (08:31)
[2019-10-30] MEDS: ASCORBIC ACID 500 MG TABLET PO SCH (08:31)
[2019-10-30] MEDS: LOSARTAN POTASSIUM 50 MG TABLET PO SCH ×2 (08:32→21:52)
[2019-10-30] MEDS: FUROSEMIDE 20MG TABLET PO SCH (09:40)
[2019-10-30] MEDS: SODIUM HYPOCHLORITE 0.125% 473ML SOLUTION TOP SCH (09:40)
[2019-10-30] MEDS: ACETAMINOPHEN 650MG/20.3ML UDC PO PRN (10:08)
[2019-10-30] MEDS: INSULIN GLARGINE UD 100 UNITS/ML SYR SUBCUT SCH ×2 (10:10→21:52)
[2019-10-30] MEDS ORDERED: MORPHINE SULFATE 2 MG/ML CPJ (NOT FOR IM USE) IV PRN (10:15)
[2019-10-30] MEDS ORDERED: LORAZEPAM 2MG/ML CPJ IM PRN (10:15)
[2019-10-30] MEDS ORDERED: LORAZEPAM 2MG/ML CPJ IV PRN (10:15)
[2019-10-30] MEDS: VANCOMYCIN 1250MG in DEXTROSE 5% WATER 250ML IV SCH (10:36)
[2019-10-30] MEDS: BLOOD SUGAR DIAGNOSTIC STRIP TEST SCH ×2 (12:00→17:27)
[2019-10-30] MEDS ORDERED: DEXTROSE 50% WATER 50ML SYRINGE IV PRN (12:00)
[2019-10-30] MEDS: INSULIN LISPRO 100 UNITS/ML SUBCUT SCH ×3 (13:33→17:27)
[2019-10-30 15:47] LABS: NUCLEATED RED BLOOD CELLS 2 /100 WBC; PLATELET ESTIMATE INCREASED
[2019-10-31] VITALS (37 sets, daily range): BP systolic 102–162; BP diastolic 60–93
[2019-10-31] MEDS ORDERED: ACETAMINOPHEN 325MG TABLET ONE (00:12)
[2019-10-31] MEDS: VANCOMYCIN 1250MG in DEXTROSE 5% WATER 250ML IV SCH ×2 (00:12→18:34)
[2019-10-31] MEDS: ACETAMINOPHEN 650MG/20.3ML UDC PO PRN (00:19)
[2019-10-31] MEDS: BLOOD SUGAR DIAGNOSTIC STRIP TEST SCH ×4 (00:20→17:43)
[2019-10-31] MEDS: IPRATROPIUM/ALBUTEROL 0.5-3(2.5)MG/3ML NEB HHN SCH ×6 (00:29→20:41)
[2019-10-31] MEDS: AZTREONAM 1G in DEXTROSE 5% WATER 50ML IV SCH ×3 (01:32→17:51)
[2019-10-31 05:05] LABS: HEMATOCRIT. 24.4 % (36.0-48.0); HEMOGLOBIN. 7.9 g/dL (12.0-16.0); MEAN CORPUSCULAR HEMOGLOBIN 28.1 pg (28.0-32.0); MEAN CORPUSCULAR VOLUME 86.4 fL (81.0-99.0); MEAN PLATELET VOLUME 8.2 fl (7.4-10.4); PLATELET 533 x1000/uL (130-400); RED BLOOD CELL COUNT 2.82 mill/uL (4.2-5.4); RED CELL DISTRIBUTION WIDTH 17.7 % (11.6-14.6)
[2019-10-31 05:06] LABS: CHLORIDE 102 mEq/L (98-107)
[2019-10-31] MEDS: INSULIN LISPRO 100 UNITS/ML SUBCUT SCH ×4 (06:00→17:43)
[2019-10-31] MEDS: ASCORBIC ACID 500 MG TABLET PO SCH (08:37)
[2019-10-31] MEDS: PANTOPRAZOLE SODIUM 40 MG/VIAL IV SCH (08:37)
[2019-10-31] MEDS: POLYETHYLENE GLYCOL 3350 (17GM) 1 DOSE PACK PO SCH (08:37)
[2019-10-31] MEDS: LOSARTAN POTASSIUM 50 MG TABLET PO SCH ×2 (08:37→21:00)
[2019-10-31] MEDS: ZINC SULFATE 220 MG ( 50 ) CAPSULE PO SCH (08:37)
[2019-10-31] MEDS: FUROSEMIDE 20MG TABLET PO SCH (08:49)
[2019-10-31 09:51] LABS: NUCLEATED RED BLOOD CELLS 2 /100 WBC
[2019-10-31 09:52] LABS: PLATELET ESTIMATE INCREASED
[2019-10-31] MEDS: INSULIN GLARGINE UD 100 UNITS/ML SYR SUBCUT SCH (10:56)
[2019-10-31] MEDS: SODIUM HYPOCHLORITE 0.125% 473ML SOLUTION TOP SCH (10:56)
[2019-10-31] MEDS: FAMOTIDINE 20MG TABLET PO SCH (21:23)
[2019-11-01] VITALS (12 sets, daily range): BP systolic 94–158; BP diastolic 56–86
[2019-11-01] MEDS: AZTREONAM 1G in DEXTROSE 5% WATER 50ML IV SCH ×3 (00:08→17:34)
[2019-11-01] MEDS: LOSARTAN POTASSIUM 50 MG TABLET PO SCH ×3 (00:21→20:51)
[2019-11-01] MEDS: ACETAMINOPHEN 650MG/20.3ML UDC PO PRN ×2 (00:21→06:37)
[2019-11-01] MEDS: IPRATROPIUM/ALBUTEROL 0.5-3(2.5)MG/3ML NEB HHN SCH ×6 (00:52→20:22)
[2019-11-01] MEDS: BLOOD SUGAR DIAGNOSTIC STRIP TEST SCH ×4 (05:45→17:36)
[2019-11-01 06:08] LABS: BASOPHILS % 0.5 % (0.0-2.0); EOSINOPHILS % 0.9 % (0.0-5.0); HEMATOCRIT. 29.6 % (36.0-48.0); HEMOGLOBIN. 9.7 g/dL (12.0-16.0); LYMPHOCYTES % 9.6 % (20.0-50.0); MEAN CORPUSCULAR HEMOGLOBIN 28.2 pg (28.0-32.0); MEAN CORPUSCULAR VOLUME 86.5 fL (81.0-99.0); MEAN PLATELET VOLUME 8.5 fl (7.4-10.4); MONOCYTES % 9.4 % (2.0-8.0); NEUTROPHILS % 79.6 % (40.0-76.0); PLATELET 657 x1000/uL (130-400); RED BLOOD CELL COUNT 3.42 mill/uL (4.2-5.4); RED CELL DISTRIBUTION WIDTH 17.9 % (11.6-14.6)
[2019-11-01 06:09] LABS: CHLORIDE 103 mEq/L (98-107)
[2019-11-01] MEDS: INSULIN LISPRO 100 UNITS/ML SUBCUT SCH ×4 (06:21→17:35)
[2019-11-01] MEDS: CLONIDINE 0.2MG TABLET PO PRN (06:26)
[2019-11-01] MEDS: ZINC SULFATE 220 MG ( 50 ) CAPSULE PO SCH (08:33)
[2019-11-01] MEDS: ASCORBIC ACID 500 MG TABLET PO SCH (08:33)
[2019-11-01] MEDS: POLYETHYLENE GLYCOL 3350 (17GM) 1 DOSE PACK PO SCH (08:33)
[2019-11-01] MEDS: FUROSEMIDE 20MG TABLET PO SCH (08:33)
[2019-11-01 08:47] LABS: BG BASE EXCESS 6.7 mmol/L (-2.0-2.0); BG CARBOXYHEMOGLOBIN 0.1 % (0.5-1.5); BG DEOXYHEMOGLOBIN 2.2 % (0.0-5.0); BG FRACTION INSPIRED OXYGEN 40; BG HCO3 ACT 31.1 mmol/L (22.0-26.0); BG METHEMOGLOBIN 0.3 % (0.0-1.5); BG OXYGEN SATURATION 97.8 % (92.0-98.5); BG OXYHEMOGLOBIN 97.4 % (94.0-97.0); BG PCO2 44.1 mmHg (35.0-45.0); BG PH 7.466 (7.350-7.450); BG PO2 97.9 mmHg (75.0-100.0); BG PRESSURE SUPPORT 14; BG SAMPLE SITE RIGHT RADIAL; BG TIDAL VOLUME(mL) 550 mL; BG TOTAL HEMOGLOBIN 9.5 g/dL (12.0-18.0); BG VENT MODE VENT - SIMV; BG VENT RATE 10 set
[2019-11-01] MEDS: VANCOMYCIN 1250MG in DEXTROSE 5% WATER 250ML IV SCH (12:00)
[2019-11-01] MEDS: FAMOTIDINE 20MG TABLET PO SCH (20:57)
[2019-11-02] VITALS (12 sets, daily range): BP systolic 119–185; BP diastolic 69–97
[2019-11-02] MEDS: ACETAMINOPHEN 650MG/20.3ML UDC PO PRN ×2 (00:24→13:38)
[2019-11-02] MEDS: INSULIN LISPRO 100 UNITS/ML SUBCUT SCH ×4 (00:24→17:55)
[2019-11-02] MEDS: BLOOD SUGAR DIAGNOSTIC STRIP TEST SCH ×4 (00:25→17:51)
[2019-11-02] MEDS: IPRATROPIUM/ALBUTEROL 0.5-3(2.5)MG/3ML NEB HHN SCH ×6 (00:49→20:30)
[2019-11-02] MEDS: CLONIDINE 0.2MG TABLET PO PRN (03:22)
[2019-11-02] MEDS: VANCOMYCIN 1250MG in DEXTROSE 5% WATER 250ML IV SCH (06:48)
[2019-11-02] MEDS: LABETALOL 5MG/ML SYR 20 MG/4 ML SYRINGE IV PRN (07:42)
[2019-11-02] MEDS: FUROSEMIDE 20MG TABLET PO SCH (08:37)
[2019-11-02] MEDS: ZINC SULFATE 220 MG ( 50 ) CAPSULE PO SCH (08:37)
[2019-11-02] MEDS: ASCORBIC ACID 500 MG TABLET PO SCH (08:37)
[2019-11-02] MEDS: LOSARTAN POTASSIUM 50 MG TABLET PO SCH ×2 (08:37→21:00)
[2019-11-02] MEDS: POLYETHYLENE GLYCOL 3350 (17GM) 1 DOSE PACK PO SCH (08:39)
[2019-11-02] MEDS: AZTREONAM 1 G in DEXTROSE 5% WATER 50 ML IV SCH (17:38)
[2019-11-02 20:58] LABS: CLARITY URINE CLEAR (CLEAR); COLOR URINE YELLOW (YELLOW); KETONES URINE NEGATIVE (NEGATIVE); LEUKOCYTE ESTERASE URINE 1+ (NEGATIVE); NITRITE URINE NEGATIVE (NEGATIVE); OCCULT BLOOD URINE NEGATIVE (NEGATIVE); PH URINE 7.5 (4.5-8.0); PROTEIN URINE TRACE (NEGATIVE); SPECIFIC GRAVITY URINE 1.023 (1.005-1.030)
[2019-11-02] MEDS: FAMOTIDINE 20MG TABLET PO SCH (21:56)
[2019-11-02] MEDS ORDERED: ONDANSETRON HCL 4MG/2ML INJ IV PRN ×2 (22:15→23:15)
[2019-11-02] MEDS: METOCLOPRAMIDE HCL 10MG/2ML VIAL IV SCH (22:33)
[2019-11-03] VITALS (12 sets, daily range): BP systolic 110–182; BP diastolic 59–105
[2019-11-03] MEDS: IPRATROPIUM/ALBUTEROL 0.5-3(2.5)MG/3ML NEB HHN SCH ×7 (00:31→23:36)
[2019-11-03] MEDS: AZTREONAM 1 G in DEXTROSE 5% WATER 50 ML IV SCH ×3 (00:36→20:22)
[2019-11-03] MEDS: BLOOD SUGAR DIAGNOSTIC STRIP TEST SCH ×4 (00:36→17:25)
[2019-11-03] MEDS: ACETAMINOPHEN 650MG/20.3ML UDC PO PRN (00:36)
[2019-11-03] MEDS: VANCOMYCIN 1250MG in DEXTROSE 5% WATER 250ML IV SCH ×2 (02:57→17:48)
[2019-11-03] MEDS: INSULIN LISPRO 100 UNITS/ML SUBCUT SCH ×4 (05:51→17:48)
[2019-11-03] MEDS: METOCLOPRAMIDE HCL 10MG/2ML VIAL IV SCH ×3 (06:00→20:27)
[2019-11-03 07:29] LABS: HEMATOCRIT. 23.4 % (36.0-48.0); HEMOGLOBIN. 7.3 g/dL (12.0-16.0); MEAN CORPUSCULAR HEMOGLOBIN 27.3 pg (28.0-32.0); MEAN CORPUSCULAR VOLUME 86.9 fL (81.0-99.0); MEAN PLATELET VOLUME 8.3 fl (7.4-10.4); PLATELET 475 x1000/uL (130-400); RED BLOOD CELL COUNT 2.69 mill/uL (4.2-5.4); RED CELL DISTRIBUTION WIDTH 17.5 % (11.6-14.6)
[2019-11-03 07:41] LABS: CHLORIDE 106 mEq/L (98-107)
[2019-11-03] MEDS: FUROSEMIDE 20MG TABLET PO SCH (08:40)
[2019-11-03] MEDS: ASCORBIC ACID 500 MG TABLET PO SCH (08:40)
[2019-11-03] MEDS: LOSARTAN POTASSIUM 50 MG TABLET PO SCH ×2 (08:40→20:23)
[2019-11-03] MEDS: ZINC SULFATE 220 MG ( 50 ) CAPSULE PO SCH (08:40)
[2019-11-03] MEDS: POLYETHYLENE GLYCOL 3350 (17GM) 1 DOSE PACK PO SCH (08:41)
[2019-11-03 13:13] LABS: PLATELET ESTIMATE INCREASED
[2019-11-03 18:03] LABS: HEMATOCRIT 26.5 % (36.0-48.0); HEMOGLOBIN 8.4 g/dL (12.0-16.0); MEAN CORPUSCULAR HEMOGLOBIN 27.2 pg (28.0-32.0); PLATELET 542 x1000/uL (130-400); RED BLOOD CELL COUNT 3.08 mill/uL (4.2-5.4); RED CELL DISTRIBUTION WIDTH 17.4 % (11.6-14.6)
[2019-11-03] MEDS: FAMOTIDINE 20MG TABLET PO SCH (20:23)
[2019-11-04] VITALS (10 sets, daily range): BP systolic 97–154; BP diastolic 53–106
[2019-11-04] MEDS: BLOOD SUGAR DIAGNOSTIC STRIP TEST SCH ×4 (00:09→18:21)
[2019-11-04] MEDS: IPRATROPIUM/ALBUTEROL 0.5-3(2.5)MG/3ML NEB HHN SCH ×5 (04:00→20:16)
[2019-11-04] MEDS: METOCLOPRAMIDE HCL 10MG/2ML VIAL IV SCH ×3 (05:36→22:31)
[2019-11-04 06:42] LABS: CHLORIDE 103 mEq/L (98-107)
[2019-11-04 06:44] LABS: BASOPHILS % 0.9 % (0.0-2.0); EOSINOPHILS % 0.9 % (0.0-5.0); HEMATOCRIT. 26.8 % (36.0-48.0); HEMOGLOBIN. 8.6 g/dL (12.0-16.0); LYMPHOCYTES % 14.5 % (20.0-50.0); MEAN CORPUSCULAR HEMOGLOBIN 27.2 pg (28.0-32.0); MEAN CORPUSCULAR VOLUME 84.9 fL (81.0-99.0); MEAN PLATELET VOLUME 8.7 fl (7.4-10.4); MONOCYTES % 10.5 % (2.0-8.0); NEUTROPHILS % 73.2 % (40.0-76.0); PLATELET 477 x1000/uL (130-400); RED BLOOD CELL COUNT 3.16 mill/uL (4.2-5.4); RED CELL DISTRIBUTION WIDTH 17.7 % (11.6-14.6)
[2019-11-04] MEDS: LOSARTAN POTASSIUM 50 MG TABLET PO SCH ×3 (08:35→21:00)
[2019-11-04] MEDS: AZTREONAM 1 G in DEXTROSE 5% WATER 50 ML IV SCH ×2 (08:35→20:12)
[2019-11-04] MEDS: FUROSEMIDE 20MG TABLET PO SCH (08:35)
[2019-11-04] MEDS: ASCORBIC ACID 500 MG TABLET PO SCH (08:35)
[2019-11-04] MEDS: ZINC SULFATE 220 MG ( 50 ) CAPSULE PO SCH (08:36)
[2019-11-04] MEDS: POLYETHYLENE GLYCOL 3350 (17GM) 1 DOSE PACK PO SCH (08:36)
[2019-11-04] MEDS: ACETYLCYSTEINE 100MG/ML 10% VIAL 4ML INH SCH ×2 (09:28→15:47)
[2019-11-04 10:23] LABS: INR 1.1; PARTIAL THROMBOPLASTIN TIME 24.7 sec (23.4-31.0); PROTHROMBIN TIME 11.3 sec (9.6-11.0)
[2019-11-04] MEDS: INSULIN LISPRO 100 UNITS/ML SUBCUT SCH ×3 (12:42→18:22)
[2019-11-04] MEDS: VANCOMYCIN 1250MG in DEXTROSE 5% WATER 250ML IV SCH (13:36)
[2019-11-04] MEDS: METRONIDAZOLE 500 MG PREMIX 100 ML IV SCH (20:12)
[2019-11-04] MEDS: FAMOTIDINE 20MG TABLET PO SCH (20:12)
[2019-11-04] MEDS: FLUCONAZOLE 200 MG/100ML BAG 100 ML IV SCH (20:12)
[2019-11-04] MEDS: ACETAMINOPHEN 650MG/20.3ML UDC PO PRN (22:47)
[2019-11-04] MEDS: CLONIDINE 0.2MG TABLET PO PRN (23:13)
[2019-11-05] VITALS (12 sets, daily range): BP systolic 126–185; BP diastolic 69–93
[2019-11-05] MEDS: BLOOD SUGAR DIAGNOSTIC STRIP TEST SCH ×5 (00:26→23:44)
[2019-11-05] MEDS: INSULIN LISPRO 100 UNITS/ML SUBCUT SCH ×4 (00:27→18:31)
[2019-11-05] MEDS: ACETYLCYSTEINE 100MG/ML 10% VIAL 4ML INH SCH ×4 (00:28→22:54)
[2019-11-05] MEDS: IPRATROPIUM/ALBUTEROL 0.5-3(2.5)MG/3ML NEB HHN SCH ×6 (00:28→22:55)
[2019-11-05] MEDS: METRONIDAZOLE 500 MG PREMIX 100 ML IV SCH ×3 (05:42→22:28)
[2019-11-05] MEDS: METOCLOPRAMIDE HCL 10MG/2ML VIAL IV SCH ×3 (05:42→21:51)
[2019-11-05] MEDS: ACETAMINOPHEN 650MG/20.3ML UDC PO PRN ×3 (06:22→18:30)
[2019-11-05 06:47] LABS: CHLORIDE 101 mEq/L (98-107)
[2019-11-05 07:29] LABS: EOSINOPHILS % 0.1 % (0.0-5.0); HEMATOCRIT. 26.2 % (36.0-48.0); HEMOGLOBIN. 8.2 g/dL (12.0-16.0); LYMPHOCYTES % 15.2 % (20.0-50.0); MEAN CORPUSCULAR HEMOGLOBIN 26.8 pg (28.0-32.0); MEAN CORPUSCULAR VOLUME 85.2 fL (81.0-99.0); MONOCYTES % 10.6 % (2.0-8.0); NEUTROPHILS % 73.1 % (40.0-76.0); RED BLOOD CELL COUNT 3.08 mill/uL (4.2-5.4); RED CELL DISTRIBUTION WIDTH 18.1 % (11.6-14.6)
[2019-11-05] MEDS: VANCOMYCIN 1250MG in DEXTROSE 5% WATER 250ML IV SCH (07:57)
[2019-11-05] MEDS: FUROSEMIDE 20MG TABLET PO SCH (08:56)
[2019-11-05] MEDS: ZINC SULFATE 220 MG ( 50 ) CAPSULE PO SCH (08:56)
[2019-11-05] MEDS: ASCORBIC ACID 500 MG TABLET PO SCH (08:56)
[2019-11-05] MEDS: LOSARTAN POTASSIUM 50 MG TABLET PO SCH ×2 (08:59→20:06)
[2019-11-05] MEDS: POLYETHYLENE GLYCOL 3350 (17GM) 1 DOSE PACK PO SCH (09:00)
[2019-11-05 09:30] LABS: PLATELET 433 x1000/uL (130-400)
[2019-11-05] MEDS: AZTREONAM 1 G in DEXTROSE 5% WATER 50 ML IV SCH ×2 (09:59→20:06)
[2019-11-05] MEDS: CLONIDINE 0.2MG TABLET PO PRN ×2 (14:57→21:51)
[2019-11-05] MEDS: HYDRALAZINE HCL 25MG TABLET PO SCH ×2 (18:47→21:51)
[2019-11-05] MEDS: FLUCONAZOLE 200 MG/100ML BAG 100 ML IV SCH (19:42)
[2019-11-05] MEDS: FAMOTIDINE 20MG TABLET PO SCH (20:06)
[2019-11-05] MEDS ORDERED: CLONIDINE 0.1MG TABLET PO NR (23:30)
[2019-11-06] VITALS (12 sets, daily range): BP systolic 111–185; BP diastolic 55–98
[2019-11-06] MEDS: INSULIN LISPRO 100 UNITS/ML SUBCUT SCH ×5 (00:08→23:47)
[2019-11-06] MEDS: VANCOMYCIN 1250MG in DEXTROSE 5% WATER 250ML IV SCH ×2 (00:34→17:56)
[2019-11-06] MEDS: IPRATROPIUM/ALBUTEROL 0.5-3(2.5)MG/3ML NEB HHN SCH ×5 (01:25→21:39)
[2019-11-06] MEDS: CLONIDINE 0.2MG TABLET PO PRN (04:56)
[2019-11-06] MEDS: BLOOD SUGAR DIAGNOSTIC STRIP TEST SCH ×4 (05:55→23:35)
[2019-11-06] MEDS ORDERED: HYDRALAZINE HCL 50MG TABLET PO SCH (06:00)
[2019-11-06] MEDS: METOCLOPRAMIDE HCL 10MG/2ML VIAL IV SCH ×3 (06:04→20:49)
[2019-11-06] MEDS: METRONIDAZOLE 500 MG PREMIX 100 ML IV SCH ×3 (06:04→23:30)
[2019-11-06 06:40] LABS: CHLORIDE 102 mEq/L (98-107)
[2019-11-06] MEDS: ACETYLCYSTEINE 100MG/ML 10% VIAL 4ML INH SCH ×2 (07:45→15:30)
[2019-11-06] MEDS: ZINC SULFATE 220 MG ( 50 ) CAPSULE PO SCH (08:31)
[2019-11-06] MEDS: LOSARTAN POTASSIUM 50 MG TABLET PO SCH ×2 (08:31→20:48)
[2019-11-06] MEDS: ASCORBIC ACID 500 MG TABLET PO SCH (08:31)
[2019-11-06] MEDS: POLYETHYLENE GLYCOL 3350 (17GM) 1 DOSE PACK PO SCH (08:31)
[2019-11-06] MEDS: FUROSEMIDE 20MG TABLET PO SCH (08:31)
[2019-11-06] MEDS: AZTREONAM 1 G in DEXTROSE 5% WATER 50 ML IV SCH ×2 (08:31→22:53)
[2019-11-06] MEDS: FUROSEMIDE 40MG TABLET PO SCH (09:00)
[2019-11-06] MEDS ORDERED: CLONIDINE 0.1MG TABLET PO PRN (10:00)
[2019-11-06 10:38] LABS: BG CARBOXYHEMOGLOBIN 0.3 % (0.5-1.5); BG DEOXYHEMOGLOBIN 1.4 % (0.0-5.0); BG FRACTION INSPIRED OXYGEN 40; BG HCO3 ACT 35.4 mmol/L (22.0-26.0); BG METHEMOGLOBIN 0.5 % (0.0-1.5); BG OXYGEN SATURATION 98.6 % (92.0-98.5); BG OXYHEMOGLOBIN 97.8 % (94.0-97.0); BG PCO2 52.9 mmHg (35.0-45.0); BG PH 7.443 (7.350-7.450); BG PO2 127.1 mmHg (75.0-100.0); BG PRESSURE SUPPORT 10; BG SAMPLE SITE RIGHT RADIAL; BG TIDAL VOLUME(mL) 550 mL; BG TOTAL HEMOGLOBIN 8.7 g/dL (12.0-18.0); BG VENT MODE VENT - SIMV; BG VENT RATE 6 set
[2019-11-06] MEDS: HYDRALAZINE HCL 50MG TABLET PO SCH ×3 (11:54→17:56)
[2019-11-06 12:05] LABS: BASOPHILS % 0.9 % (0.0-2.0); EOSINOPHILS % 0.2 % (0.0-5.0); HEMATOCRIT. 28.3 % (36.0-48.0); HEMOGLOBIN. 9.1 g/dL (12.0-16.0); LYMPHOCYTES % 11.7 % (20.0-50.0); MEAN CORPUSCULAR HEMOGLOBIN 27.8 pg (28.0-32.0); MEAN PLATELET VOLUME 8.4 fl (7.4-10.4); MONOCYTES % 9.7 % (2.0-8.0); NEUTROPHILS % 77.5 % (40.0-76.0); PLATELET 433 x1000/uL (130-400); RED BLOOD CELL COUNT 3.29 mill/uL (4.2-5.4); RED CELL DISTRIBUTION WIDTH 17.5 % (11.6-14.6)
[2019-11-06] MEDS: CLONIDINE 0.2MG TABLET PO SCH ×2 (13:49→23:34)
[2019-11-06] MEDS: FLUCONAZOLE 200 MG/100ML BAG 100 ML IV SCH (20:47)
[2019-11-06] MEDS: ACETAMINOPHEN 650MG/20.3ML UDC PO PRN (20:47)
[2019-11-06] MEDS: FAMOTIDINE 20MG TABLET PO SCH (20:48)
[2019-11-07] VITALS (12 sets, daily range): BP systolic 113–178; BP diastolic 61–96
[2019-11-07] MEDS: ACETYLCYSTEINE 100MG/ML 10% VIAL 4ML INH SCH ×3 (00:35→16:15)
[2019-11-07] MEDS: IPRATROPIUM/ALBUTEROL 0.5-3(2.5)MG/3ML NEB HHN SCH ×5 (00:35→20:22)
[2019-11-07] MEDS: HYDRALAZINE HCL 50MG TABLET PO SCH ×5 (01:00→23:56)
[2019-11-07] MEDS: CLONIDINE 0.2MG TABLET PO SCH ×3 (05:37→22:01)
[2019-11-07] MEDS: METRONIDAZOLE 500 MG PREMIX 100 ML IV SCH ×3 (05:49→21:57)
[2019-11-07] MEDS: BLOOD SUGAR DIAGNOSTIC STRIP TEST SCH ×4 (05:49→23:56)
[2019-11-07] MEDS: METOCLOPRAMIDE HCL 10MG/2ML VIAL IV SCH ×3 (05:49→21:57)
[2019-11-07] MEDS: INSULIN LISPRO 100 UNITS/ML SUBCUT SCH ×3 (05:50→18:24)
[2019-11-07 06:47] LABS: HEMATOCRIT. 29.8 % (36.0-48.0); HEMOGLOBIN. 9.5 g/dL (12.0-16.0); MEAN CORPUSCULAR HEMOGLOBIN 27.5 pg (28.0-32.0); MEAN CORPUSCULAR VOLUME 86.3 fL (81.0-99.0); RED BLOOD CELL COUNT 3.45 mill/uL (4.2-5.4); RED CELL DISTRIBUTION WIDTH 17.9 % (11.6-14.6)
[2019-11-07 07:38] LABS: CHLORIDE 102 mEq/L (98-107)
[2019-11-07] MEDS: ZINC SULFATE 220 MG ( 50 ) CAPSULE PO SCH (08:00)
[2019-11-07] MEDS: POLYETHYLENE GLYCOL 3350 (17GM) 1 DOSE PACK PO SCH (08:00)
[2019-11-07] MEDS: LOSARTAN POTASSIUM 50 MG TABLET PO SCH ×2 (08:00→20:43)
[2019-11-07] MEDS: ASCORBIC ACID 500 MG TABLET PO SCH (08:00)
[2019-11-07] MEDS: FUROSEMIDE 40MG TABLET PO SCH (08:00)
[2019-11-07] MEDS: AZTREONAM 1 G in DEXTROSE 5% WATER 50 ML IV SCH ×2 (08:07→20:43)
[2019-11-07] MEDS: ACETAMINOPHEN 650MG/20.3ML UDC PO PRN ×2 (08:12→20:43)
[2019-11-07 10:18] LABS: BG CARBOXYHEMOGLOBIN 0.3 % (0.5-1.5); BG DEOXYHEMOGLOBIN 1.4 % (0.0-5.0); BG FRACTION INSPIRED OXYGEN 40; BG HCO3 ACT 37.4 mmol/L (22.0-26.0); BG METHEMOGLOBIN 0.4 % (0.0-1.5); BG OXYGEN SATURATION 98.6 % (92.0-98.5); BG OXYHEMOGLOBIN 97.9 % (94.0-97.0); BG PH 7.346 (7.350-7.450); BG PO2 139.6 mmHg (75.0-100.0); BG PRESSURE SUPPORT 8; BG SAMPLE SITE RIGHT RADIAL; BG TOTAL HEMOGLOBIN 9.4 g/dL (12.0-18.0); BG VENT MODE VENT - CPAP
[2019-11-07 10:30] LABS: PLATELET 314 x1000/uL (130-400)
[2019-11-07 10:36] LABS: NUCLEATED RED BLOOD CELLS 1 /100 WBC; PLATELET ESTIMATE NORMAL
[2019-11-07] MEDS: VANCOMYCIN 1250MG in DEXTROSE 5% WATER 250ML IV SCH (12:13)
[2019-11-07] MEDS ORDERED: LORAZEPAM 2MG/ML CPJ IV PRN (18:15)
[2019-11-07] MEDS ORDERED: MORPHINE SULFATE 2 MG/ML CPJ (NOT FOR IM USE) IV PRN (18:15)
[2019-11-07] MEDS: FAMOTIDINE 20MG TABLET PO SCH (20:43)
[2019-11-07] MEDS: FLUCONAZOLE 200 MG/100ML BAG 100 ML IV SCH (20:48)
[2019-11-08] VITALS (12 sets, daily range): BP systolic 125–199; BP diastolic 70–100
[2019-11-08] MEDS: INSULIN LISPRO 100 UNITS/ML SUBCUT SCH ×4 (00:01→18:24)
[2019-11-08] MEDS: ACETYLCYSTEINE 100MG/ML 10% VIAL 4ML INH SCH ×3 (00:17→16:10)
[2019-11-08] MEDS: IPRATROPIUM/ALBUTEROL 0.5-3(2.5)MG/3ML NEB HHN SCH ×6 (00:18→21:33)
[2019-11-08] MEDS: METRONIDAZOLE 500 MG PREMIX 100 ML IV SCH ×3 (06:18→21:43)
[2019-11-08] MEDS: METOCLOPRAMIDE HCL 10MG/2ML VIAL IV SCH ×3 (06:19→16:39)
[2019-11-08] MEDS: BLOOD SUGAR DIAGNOSTIC STRIP TEST SCH ×3 (06:19→18:00)
[2019-11-08] MEDS: CLONIDINE 0.2MG TABLET PO SCH ×3 (06:19→21:44)
[2019-11-08] MEDS: HYDRALAZINE HCL 50MG TABLET PO SCH ×3 (06:19→17:44)
[2019-11-08] MEDS: ASCORBIC ACID 500 MG TABLET PO SCH (08:04)
[2019-11-08] MEDS: AZTREONAM 1 G in DEXTROSE 5% WATER 50 ML IV SCH ×2 (08:04→21:43)
[2019-11-08] MEDS: ACETAMINOPHEN 650MG/20.3ML UDC PO PRN (08:04)
[2019-11-08] MEDS: POLYETHYLENE GLYCOL 3350 (17GM) 1 DOSE PACK PO SCH (08:04)
[2019-11-08] MEDS: FUROSEMIDE 40MG TABLET PO SCH (08:04)
[2019-11-08 08:05] LABS: HEMATOCRIT. 27.3 % (36.0-48.0); MEAN CORPUSCULAR HEMOGLOBIN 28.1 pg (28.0-32.0); MEAN CORPUSCULAR VOLUME 85.3 fL (81.0-99.0); MEAN PLATELET VOLUME 8.5 fl (7.4-10.4); PLATELET 397 x1000/uL (130-400); RED CELL DISTRIBUTION WIDTH 18.2 % (11.6-14.6)
[2019-11-08] MEDS: VANCOMYCIN 1250MG in DEXTROSE 5% WATER 250ML IV SCH (08:07)
[2019-11-08 08:21] LABS: CHLORIDE 99 mEq/L (98-107)
[2019-11-08] MEDS: ZINC SULFATE 220 MG ( 50 ) CAPSULE PO SCH (08:56)
[2019-11-08 11:44] LABS: NUCLEATED RED BLOOD CELLS 1 /100 WBC
[2019-11-08 11:45] LABS: PLATELET ESTIMATE NORMAL
[2019-11-08] MEDS: FLUCONAZOLE 200 MG/100ML BAG 100 ML IV SCH (21:43)
[2019-11-08] MEDS: FAMOTIDINE 20MG TABLET PO SCH (22:15)
[2019-11-09] VITALS (14 sets, daily range): BP systolic 104–156; BP diastolic 55–90
[2019-11-09] MEDS: HYDRALAZINE HCL 50MG TABLET PO SCH ×5 (00:01→23:54)
[2019-11-09] MEDS: INSULIN LISPRO 100 UNITS/ML SUBCUT SCH ×5 (00:01→23:54)
[2019-11-09] MEDS: BLOOD SUGAR DIAGNOSTIC STRIP TEST SCH ×5 (00:01→23:54)
[2019-11-09] MEDS: IPRATROPIUM/ALBUTEROL 0.5-3(2.5)MG/3ML NEB HHN SCH ×6 (00:35→21:13)
[2019-11-09] MEDS: VANCOMYCIN 1250MG in DEXTROSE 5% WATER 250ML IV SCH ×2 (00:58→20:04)
[2019-11-09] MEDS: CLONIDINE 0.2MG TABLET PO SCH ×3 (05:04→21:51)
[2019-11-09] MEDS: METRONIDAZOLE 500 MG PREMIX 100 ML IV SCH ×2 (05:27→14:51)
[2019-11-09 06:03] LABS: EOSINOPHILS % 0.2 % (0.0-5.0); HEMOGLOBIN. 9.1 g/dL (12.0-16.0); LYMPHOCYTES % 17.9 % (20.0-50.0); MEAN CORPUSCULAR HEMOGLOBIN 27.5 pg (28.0-32.0); MEAN CORPUSCULAR VOLUME 84.4 fL (81.0-99.0); MEAN PLATELET VOLUME 8.4 fl (7.4-10.4); MONOCYTES % 10.1 % (2.0-8.0); NEUTROPHILS % 70.8 % (40.0-76.0); PLATELET 372 x1000/uL (130-400); RED BLOOD CELL COUNT 3.32 mill/uL (4.2-5.4); RED CELL DISTRIBUTION WIDTH 17.8 % (11.6-14.6)
[2019-11-09 06:04] LABS: CHLORIDE 99 mEq/L (98-107)
[2019-11-09] MEDS: ACETYLCYSTEINE 100MG/ML 10% VIAL 4ML INH SCH (08:12)
[2019-11-09] MEDS: ASCORBIC ACID 500 MG TABLET PO SCH (09:00)
[2019-11-09] MEDS: ZINC SULFATE 220 MG ( 50 ) CAPSULE PO SCH (09:00)
[2019-11-09] MEDS: POLYETHYLENE GLYCOL 3350 (17GM) 1 DOSE PACK PO SCH (09:00)
[2019-11-09] MEDS: FUROSEMIDE 40MG TABLET PO SCH (09:00)
[2019-11-09] MEDS ORDERED: THROMBIN (BOVINE) 5000 UNITS/VIAL TOP ONE ×2 (09:18→09:19)
[2019-11-09] MEDS ORDERED: LIDOCAINE HCL/EPINEPHRINE 1%-EPI 1:100,000 20 ML VIAL ONE (09:18)
[2019-11-09] MEDS ORDERED: NORMAL SALINE 0.9% 10 ML SYR ONE (09:18)
[2019-11-09] MEDS ORDERED: BACITRACIN 50,000 UNITS/VIAL ONE (09:19)
[2019-11-09] MEDS: METOCLOPRAMIDE HCL 10MG/2ML VIAL IV SCH (09:21)
[2019-11-09] MEDS: AZTREONAM 1 G in DEXTROSE 5% WATER 50 ML IV SCH ×2 (09:21→21:51)
[2019-11-09] MEDS ORDERED: NICARDIPINE 100 MG in SODIUM CHLORIDE 0.9% 60 ML IV PRN (09:45)
[2019-11-09] MEDS ORDERED: MORPHINE SULFATE 4 MG/ML CPJ (NOT FOR IM USE) IV PRN (09:45)
[2019-11-09] MEDS ORDERED: MIDAZOLAM HCL 2 MG/2 ML VIAL ONE (10:15)
[2019-11-09] MEDS ORDERED: PROPOFOL 200MG/20ML VIAL IV ONE (10:15)
[2019-11-09] MEDS ORDERED: FENTANYL CITRATE/PF 50MCG/ML 2ML VIAL ONE (10:15)
[2019-11-09] MEDS ORDERED: ONDANSETRON HCL 4MG/2ML INJ ONE (10:52)
[2019-11-09] MEDS ORDERED: DEXAMETHASONE 4MG/ML 1ML VIAL ONE (10:52)
[2019-11-09] MEDS ORDERED: PHENYLEPHRINE HCL 10 MG/ML 1ML (IV VIAL) IV ONE (11:18)
[2019-11-09] MEDS ORDERED: SODIUM CHLORIDE 0.9% 10ML VIAL ONE (11:18)
[2019-11-09] MEDS ORDERED: MEPERIDINE HCL/PF 25MG/ML CPJ IV PRN (11:30)
[2019-11-09] MEDS ORDERED: ONDANSETRON HCL 4MG/2ML INJ IV PRN (11:30)
[2019-11-09] MEDS ORDERED: LABETALOL 5MG/ML SYR 20 MG/4 ML SYRINGE IV PRN (11:30)
[2019-11-09] MEDS ORDERED: HYDROMORPHONE HCL/PF 2MG/ML CPJ IV PRN (11:30)
[2019-11-09] MEDS ORDERED: HYDRALAZINE 20MG/ML VIAL IV PRN (12:15)
[2019-11-09] MEDS: FAMOTIDINE 20MG TABLET PO SCH (21:51)
[2019-11-10] VITALS (12 sets, daily range): BP systolic 102–145; BP diastolic 52–80
[2019-11-10] MEDS: HYDRALAZINE HCL 50MG TABLET PO SCH ×3 (06:41→17:34)
[2019-11-10] MEDS: BLOOD SUGAR DIAGNOSTIC STRIP TEST SCH ×3 (06:42→17:35)
[2019-11-10] MEDS: CLONIDINE 0.2MG TABLET PO SCH ×3 (06:42→21:30)
[2019-11-10] MEDS: INSULIN LISPRO 100 UNITS/ML SUBCUT SCH ×3 (06:42→17:35)
[2019-11-10] MEDS: ACETAMINOPHEN 650MG/20.3ML UDC PO PRN (06:52)
[2019-11-10] MEDS: IPRATROPIUM/ALBUTEROL 0.5-3(2.5)MG/3ML NEB HHN SCH ×4 (08:28→20:35)
[2019-11-10 08:36] LABS: BG BASE EXCESS 2.9 mmol/L (-2.0-2.0); BG CARBOXYHEMOGLOBIN 0.1 % (0.5-1.5); BG DEOXYHEMOGLOBIN 4.4 % (0.0-5.0); BG FRACTION INSPIRED OXYGEN 40; BG HCO3 ACT 25.7 mmol/L (22.0-26.0); BG METHEMOGLOBIN 0.4 % (0.0-1.5); BG OXYGEN SATURATION 95.6 % (92.0-98.5); BG OXYHEMOGLOBIN 95.1 % (94.0-97.0); BG PCO2 32.3 mmHg (35.0-45.0); BG PH 7.519 (7.350-7.450); BG PO2 72.9 mmHg (75.0-100.0); BG SAMPLE SITE RIGHT RADIAL; BG TIDAL VOLUME(mL) 550 mL; BG TOTAL HEMOGLOBIN 8.7 g/dL (12.0-18.0); BG VENT MODE VENT - A/C; BG VENT RATE 16 set
[2019-11-10] MEDS: FUROSEMIDE 40MG TABLET PO SCH (08:45)
[2019-11-10] MEDS: ASCORBIC ACID 500 MG TABLET PO SCH (08:45)
[2019-11-10] MEDS: ZINC SULFATE 220 MG ( 50 ) CAPSULE PO SCH (08:45)
[2019-11-10] MEDS: AZTREONAM 1 G in DEXTROSE 5% WATER 50 ML IV SCH ×2 (08:45→21:27)
[2019-11-10] MEDS: VANCOMYCIN 1250MG in DEXTROSE 5% WATER 250ML IV SCH (12:26)
[2019-11-10 13:36] LABS: BASOPHILS % 0.2 % (0.0-2.0); HEMATOCRIT. 25.6 % (36.0-48.0); LYMPHOCYTES % 10.1 % (20.0-50.0); MEAN CORPUSCULAR HEMOGLOBIN 26.5 pg (28.0-32.0); MEAN CORPUSCULAR VOLUME 85.4 fL (81.0-99.0); MEAN PLATELET VOLUME 8.5 fl (7.4-10.4); MONOCYTES % 9.1 % (2.0-8.0); NEUTROPHILS % 80.6 % (40.0-76.0); PLATELET 295 x1000/uL (130-400); RED CELL DISTRIBUTION WIDTH 18.3 % (11.6-14.6)
[2019-11-10 13:46] LABS: CHLORIDE 100 mEq/L (98-107)
[2019-11-10] MEDS: FAMOTIDINE 20MG TABLET PO SCH (21:27)
[2019-11-11] VITALS (12 sets, daily range): BP systolic 108–166; BP diastolic 62–83
[2019-11-11] MEDS: HYDRALAZINE HCL 50MG TABLET PO SCH ×4 (00:02→17:03)
[2019-11-11] MEDS: BLOOD SUGAR DIAGNOSTIC STRIP TEST SCH ×4 (00:03→17:12)
[2019-11-11] MEDS: INSULIN LISPRO 100 UNITS/ML SUBCUT SCH ×4 (00:03→17:04)
[2019-11-11] MEDS: IPRATROPIUM/ALBUTEROL 0.5-3(2.5)MG/3ML NEB HHN SCH ×6 (00:16→21:15)
[2019-11-11] MEDS: CLONIDINE 0.2MG TABLET PO SCH ×3 (06:21→22:51)
[2019-11-11] MEDS: VANCOMYCIN 1250MG in DEXTROSE 5% WATER 250ML IV SCH (06:25)
[2019-11-11 07:22] LABS: CHLORIDE 100 mEq/L (98-107)
[2019-11-11 07:43] LABS: VANCOMYCIN TROUGH 15.9 ug/mL (5.0-10.0)
[2019-11-11] MEDS: ZINC SULFATE 220 MG ( 50 ) CAPSULE PO SCH (09:04)
[2019-11-11] MEDS: AZTREONAM 1 G in DEXTROSE 5% WATER 50 ML IV SCH ×2 (09:04→21:24)
[2019-11-11] MEDS: FUROSEMIDE 40MG TABLET PO SCH (09:04)
[2019-11-11] MEDS: ASCORBIC ACID 500 MG TABLET PO SCH (09:04)
[2019-11-11] MEDS: AMLODIPINE 5MG TABLET PO SCH (13:23)
[2019-11-11] MEDS: CARVEDILOL 3.125 MG TABLET PO SCH (21:00)
[2019-11-11] MEDS: FAMOTIDINE 20MG TABLET PO SCH (21:24)
[2019-11-11] MEDS: LINEZOLID 600 MG PREMIX 300 ML IV SCH (22:50)
[2019-11-12] VITALS (13 sets, daily range): BP systolic 106–152; BP diastolic 72–96
[2019-11-12] MEDS: INSULIN LISPRO 100 UNITS/ML SUBCUT SCH ×4 (00:20→18:21)
[2019-11-12] MEDS: HYDRALAZINE HCL 50MG TABLET PO SCH ×4 (00:21→18:08)
[2019-11-12] MEDS: BLOOD SUGAR DIAGNOSTIC STRIP TEST SCH ×4 (00:21→18:01)
[2019-11-12] MEDS: IPRATROPIUM/ALBUTEROL 0.5-3(2.5)MG/3ML NEB HHN SCH ×5 (01:24→20:21)
[2019-11-12] MEDS: CLONIDINE 0.2MG TABLET PO SCH ×3 (06:28→21:30)
[2019-11-12] MEDS: ACETAMINOPHEN 650MG/20.3ML UDC PO PRN (06:31)
[2019-11-12 06:42] LABS: CHLORIDE 97 mEq/L (98-107)
[2019-11-12 06:53] LABS: BASOPHILS % 0.6 % (0.0-2.0); EOSINOPHILS % 0.1 % (0.0-5.0); HEMATOCRIT. 27.5 % (36.0-48.0); HEMOGLOBIN. 8.7 g/dL (12.0-16.0); LYMPHOCYTES % 12.5 % (20.0-50.0); MEAN CORPUSCULAR HEMOGLOBIN 27.1 pg (28.0-32.0); MEAN CORPUSCULAR VOLUME 86.2 fL (81.0-99.0); MEAN PLATELET VOLUME 8.8 fl (7.4-10.4); MONOCYTES % 10.1 % (2.0-8.0); NEUTROPHILS % 76.7 % (40.0-76.0); PLATELET 305 x1000/uL (130-400); RED CELL DISTRIBUTION WIDTH 19.1 % (11.6-14.6)
[2019-11-12] MEDS: LINEZOLID 600 MG PREMIX 300 ML IV SCH ×2 (10:00→21:31)
[2019-11-12] MEDS: AZTREONAM 1 G in DEXTROSE 5% WATER 50 ML IV SCH ×2 (10:00→21:28)
[2019-11-12] MEDS: AMLODIPINE 5MG TABLET PO SCH (10:01)
[2019-11-12] MEDS: ASCORBIC ACID 500 MG TABLET PO SCH (10:02)
[2019-11-12] MEDS: ZINC SULFATE 220 MG ( 50 ) CAPSULE PO SCH (10:02)
[2019-11-12] MEDS: FUROSEMIDE 40MG TABLET PO SCH (10:02)
[2019-11-12] MEDS: CARVEDILOL 3.125 MG TABLET PO SCH ×2 (10:03→21:29)
[2019-11-12] MEDS: INSULIN GLARGINE UD 100 UNITS/ML SYR SUBCUT SCH (10:31)
[2019-11-12] MEDS ORDERED: AMLO5TAB88 PO (13:59)
[2019-11-12] MEDS ORDERED: COR3 PO (13:59)
[2019-11-12] MEDS ORDERED: CLON0.2T12 PO (13:59)
[2019-11-12] MEDS ORDERED: AZTR1VIA IJ (13:59)
[2019-11-12] MEDS ORDERED: LANTUSUD SUBCUT (13:59)
[2019-11-12] MEDS ORDERED: [UNRECOGNIZED DRUG - CODE] IV (14:00)
[2019-11-12] MEDS: FAMOTIDINE 20MG TABLET PO SCH (21:30)
[2019-11-12] MEDS: LINEZOLID 600MG TABLET PO SCH (21:32)
[2019-11-13] VITALS (10 sets, daily range): BP systolic 115–156; BP diastolic 59–93
[2019-11-13] MEDS: IPRATROPIUM/ALBUTEROL 0.5-3(2.5)MG/3ML NEB HHN SCH ×6 (00:25→20:16)
[2019-11-13] MEDS: HYDRALAZINE HCL 50MG TABLET PO SCH ×4 (01:18→18:21)
[2019-11-13] MEDS: INSULIN LISPRO 100 UNITS/ML SUBCUT SCH ×4 (01:20→18:21)
[2019-11-13] MEDS: CLONIDINE 0.2MG TABLET PO SCH ×2 (06:36→14:29)
[2019-11-13] MEDS: BLOOD SUGAR DIAGNOSTIC STRIP TEST SCH ×4 (06:55→17:10)
[2019-11-13] MEDS: AZTREONAM 1 G in DEXTROSE 5% WATER 50 ML IV SCH (08:51)
[2019-11-13] MEDS: AMLODIPINE 5MG TABLET PO SCH (08:52)
[2019-11-13] MEDS: ZINC SULFATE 220 MG ( 50 ) CAPSULE PO SCH (08:52)
[2019-11-13] MEDS: CARVEDILOL 3.125 MG TABLET PO SCH (08:52)
[2019-11-13] MEDS: FUROSEMIDE 40MG TABLET PO SCH (08:52)
[2019-11-13] MEDS: LINEZOLID 600MG TABLET PO SCH (08:52)
[2019-11-13] MEDS: ASCORBIC ACID 500 MG TABLET PO SCH (08:52)
[2019-11-13] MEDS: INSULIN GLARGINE UD 100 UNITS/ML SYR SUBCUT SCH (12:34)
[2019-11-14] MEDS ORDERED: INSULIN GLARGINE UD 100 UNITS/ML SYR SUBCUT SCH (10:00)
== END 2019-11-13 21:08 | DRG 3 ==
LOC: ER 12:19 → MICUSO 15:40 → 6WST 10-01 00:39 → MICUNO 10-01 11:45 → 5EST 10-31 18:14
PROVIDERS: ADMIT Internal Medicine; ATTEND Internal Medicine
PROC: 5A1955Z Respiratory Ventilation, Greater than 96 Consecutive Hours (ICD-10-PCS; 2019-10-01)
PROC: 0RG20J1 Fusion of 2 or more Cervical Vertebral Joints with Synthetic Substitute, Posterior Approach, Posterior Column, Open Approach (ICD-10-PCS; 2019-10-01)
PROC: 0RG40J1 Fusion of Cervicothoracic Vertebral Joint with Synthetic Substitute, Posterior Approach, Posterior Column, Open Approach (ICD-10-PCS; 2019-10-01)
PROC: 00NW0ZZ Release Cervical Spinal Cord, Open Approach (ICD-10-PCS; 2019-10-01)
PROC: 0RB30ZZ Excision of Cervical Vertebral Disc, Open Approach (ICD-10-PCS; 2019-10-01)
PROC: 0BH17EZ Insertion of Endotracheal Airway into Trachea, Via Natural or Artificial Opening (ICD-10-PCS; 2019-10-01)
PROC: 06H03DZ Insertion of Intraluminal Device into Inferior Vena Cava, Percutaneous Approach (ICD-10-PCS; 2019-10-02)
PROC: 30233N1 Transfusion of Nonautologous Red Blood Cells into Peripheral Vein, Percutaneous Approach (ICD-10-PCS; 2019-10-02)
PROC: B5191ZZ Fluoroscopy of Inferior Vena Cava using Low Osmolar Contrast (ICD-10-PCS; 2019-10-02)
PROC: 0QB10ZZ Excision of Sacrum, Open Approach (ICD-10-PCS; 2019-10-03)
PROC: 02HV33Z Insertion of Infusion Device into Superior Vena Cava, Percutaneous Approach (ICD-10-PCS; 2019-10-05)
PROC: B548ZZA Ultrasonography of Superior Vena Cava, Guidance (ICD-10-PCS; 2019-10-05)
PROC: B01B1ZZ Fluoroscopy of Spinal Cord using Low Osmolar Contrast (ICD-10-PCS; 2019-10-06)
PROC: 0BH17EZ Insertion of Endotracheal Airway into Trachea, Via Natural or Artificial Opening (ICD-10-PCS; 2019-10-13)
PROC: 5A1955Z Respiratory Ventilation, Greater than 96 Consecutive Hours (ICD-10-PCS; 2019-10-13)
PROC: 5A12012 Performance of Cardiac Output, Single, Manual (ICD-10-PCS; 2019-10-13)
PROC: 0B110F4 Bypass Trachea to Cutaneous with Tracheostomy Device, Open Approach (ICD-10-PCS; principal; 2019-10-29)
PROC: 0GBJ0ZZ Excision of Thyroid Gland Isthmus, Open Approach (ICD-10-PCS; 2019-10-29)
PROC: 0DH63UZ Insertion of Feeding Device into Stomach, Percutaneous Approach (ICD-10-PCS; 2019-10-29)
PROC: 0QB10ZZ Excision of Sacrum, Open Approach (ICD-10-PCS; 2019-11-06)
PROC: 009U0ZZ Drainage of Spinal Canal, Open Approach (ICD-10-PCS; 2019-11-09)
DX: A41.9 Sepsis, unspecified organism (principal); L89.893 Pressure ulcer of other site, stage 3; L89.154 Pressure ulcer of sacral region, stage 4; G82.50 Quadriplegia, unspecified; I50.23 Acute on chronic systolic (congestive) heart failure; J18.9 Pneumonia, unspecified organism; J96.22 Acute and chronic respiratory failure with hypercapnia; J96.21 Acute and chronic respiratory failure with hypoxia; G93.41 Metabolic encephalopathy; I62.1 Nontraumatic extradural hemorrhage; E44.0 Moderate protein-calorie malnutrition; G99.2 Myelopathy in diseases classified elsewhere; I82.411 Acute embolism and thrombosis of right femoral vein; D62 Acute posthemorrhagic anemia; E66.2 Morbid (severe) obesity with alveolar hypoventilation; N17.9 Acute kidney failure, unspecified; I42.9 Cardiomyopathy, unspecified; I47.1 Supraventricular tachycardia; J44.0 Chronic obstructive pulmonary disease with (acute) lower respiratory infection; T81.31XA Disruption of external operation (surgical) wound, not elsewhere classified, initial encounter; Z99.11 Dependence on respirator [ventilator] status; Z68.45 Body mass index [BMI] 70 or greater, adult; M48.02 Spinal stenosis, cervical region; M48.04 Spinal stenosis, thoracic region; I11.0 Hypertensive heart disease with heart failure; S01.412A Laceration without foreign body of left cheek and temporomandibular area, initial encounter; S01.411A Laceration without foreign body of right cheek and temporomandibular area, initial encounter; S21.219A Laceration without foreign body of unspecified back wall of thorax without penetration into thoracic cavity, initial encounter; X58.XXXA Exposure to other specified factors, initial encounter; F41.9 Anxiety disorder, unspecified; I27.20 Pulmonary hypertension, unspecified; L89.620 Pressure ulcer of left heel, unstageable; L85.3 Xerosis cutis; Z20.828 Contact with and (suspected) exposure to other viral communicable diseases; E11.65 Type 2 diabetes mellitus with hyperglycemia; Y84.8 Other medical procedures as the cause of abnormal reaction of the patient, or of later complication, without mention of misadventure at the time of the procedure; Z74.01 Bed confinement status; Z95.828 Presence of other vascular implants and grafts; Z98.891 History of uterine scar from previous surgery; Z88.0 Allergy status to penicillin; Z79.4 Long term (current) use of insulin; Z79.899 Other long term (current) drug therapy; Y93.89 Activity, other specified; Y92.89 Other specified places as the place of occurrence of the external cause; Y99.8 Other external cause status; Y83.8 Other surgical procedures as the cause of abnormal reaction of the patient, or of later complication, without mention of misadventure at the time of the procedure
CPT/HCPCS: 36415; 36600; 37191; 62270; 71045; 72040; 76000; 76604; 76937; 77003; 80048; 80053; 80061; 80202; 80305; 81003; 82040; 82270; 82375; 82607; 82728; 82746; 82805; 82962; 83036; 83540; 83550; 83615; 83735; 83880; 84100; 84134; 84145; 84478; 84550; 85025; 85027; 85384; 86850; 86900; 86920; 87070; 87075; 87077; 87186; 88304; 88311; 93005; 93306; 93970; 94003; 94640; 94667; 95863; 95925; 95926; 95928; 95929; 95940; 97110; 97162; 97164; 97166; 99285; C1713; C1725; C1766; C1769; C1880; C9113; J0360; J1100; J1170; J1450; J1815; J1940; J1956; J2020; J2060; J2250; J2270; J2370; J2405; J2704; J2710; J2765; J3010; J3370; J3480; J3490; J7030; J7050; J7060; J7121; J7608; P9016; Q9967; U0003-CS